=== PATIENT | male | born 1955 | race African-American/Black ===

== ENCOUNTER 2018-11-28 13:12 | Inpatient (IN) | payer OTHER ==
[2018-11-28 13:26] VITALS: BMI 23.7
--- NOTE | 2018-11-28 13:45 | PDOC ---
History of Present Illness - General Chief Complaint: Chest Pain Stated Complaint: CHEST PAIN Time Seen by Provider: 11/28/18 13:35 History Source: Patient - History of Present Illness Initial Comments: 11/28/18 13:45 The patient is a 62 year old male with a PMH of BPH, HTN and cocaine abuse who presents to the ED c/o acute onset of chest pain. Pain started 1-2 hours prior to presentation after he ate a sandwich while waiting to check into [facility] for detox . Pain is L sided, either "pressure" or "squeezing" non-radiating and intermittent without any identifying triggering or relieving factors. Denies palpitations, lightheadedness, shortness of breath, diaphoresis, nausea. Endorses 1 month h/o productive cough. States he smoked crack overnight and stopped around 9:30 a.m. this morning and his chest pain is similar to the chest pain he experienced after snorting cocaine last week. H/o negative stress testing 10+ years previous. Smokes 2ppd since age 26. NKDA Surgical: R inguinal hernia repair Social: daily cocaine, alcohol, cigarettes PMD: Dr. Chiqui Velazquez M.D. @ [facility]. As per EMR, patient has no prior evaluation our ED. Past History - Past Medical History Allergies/Adverse Reactions: Allergies Allergy/AdvReac Type Severity Reaction Status Date / Time No Known Allergies Allergy Verified 11/28/18 13:26 Home Medications: Ambulatory Orders Hydrochlorothiazide [Hctz -] 25 mg PO DAILY 11/28/18 Tamsulosin HCl [Flomax] 0.4 mg PO DAILY 11/28/18 COPD: No HTN: Yes - Suicide/Smoking/Psychosocial Hx Smoking History: Current every day smoker Number of Cigarettes Smoked Daily: 40 Information on smoking cessation initiated: Yes Drug/Substance Use Hx: Yes (COCAINE) Review of Systems - Review of Systems Constitutional: No: Chills, Fever HEENTM: No: Blurred Vision, Hearing Loss Respiratory: Yes: Productive cough. No: Hemoptysis Cardiac (ROS): Yes: Chest Pain. No: Lightheadedness, Palpitations, Syncope ABD/GI: No: Constipated, Diarrhea, Nausea, Vomiting *Physical Exam - Vital Signs Last Vital Signs Temp Pulse Resp BP Pulse Ox 98.2 F 71 20 154/96 96 11/28/18 13:24 11/28/18 13:24 11/28/18 13:24 11/28/18 13:24 11/28/18 13:24 - Physical Exam General Appearance: Yes: Nourished, Appropriately Dressed HEENT: positive: Normal Voice, Hearing Grossly Normal Neck: positive: Trachea midline, Supple Respiratory/Chest: positive: Lungs Clear, Normal Breath Sounds. negative: Crackles, Rales, Wheezing, Dullness Cardiovascular: positive: S1, S2. negative: Edema, JVD Vascular Pulses: Dorsalis-Pedis (R): 2+, Doralis-Pedis (L): 2+ Gastrointestinal/Abdominal: positive: Normal Bowel Sounds, Soft Extremity: positive: Normal Capillary Refill, Normal Inspection Integumentary: positive: Normal Color, Dry, Warm Neurologic: positive: Fully Oriented, Alert ED Treatment Course - LABORATORY CBC & Chemistry Diagram: 11/28/18 13:52 11/28/18 13:52 Medical Decision Making - Medical Decision Making 11/28/18 13:49 62 year old male with chest pain, recent cocaine use this a.m., non-cocaine toxic. VS unremarkable. Frontal diagnosis: r/o ACS, coronary vasospasm, NSTEMI , STEMI, arrhythmia, unstable angina, PE, dissection, PUD, esophageal spasm, GERD, gastritis, costochondritis, pneumonia, pleurisy, pericarditis/ myocarditis. dehydration, electrolyte/metabolic derangements. Will obtain Troponin x2, EKG, CXR, CBC/CMP. Reassess. 11/28/18 13:51 EKG non-ischemic as documented in EKG section of EMR 11/28/18 14:44 Troponin (-) x1 CBC unremarkable Heart Score 5 11/28/18 14:50 Patient reassessed @ bedside VSS At this time, patient requires serial troponins given RF of smoking, HTN w/ Heart Score 5. Counseled on plan of care, amenable to admission Hospitalist microblogged for admission 11/28/18 15:12 Case d/w Hospitalist [facility], will admit OBS tele for serial troponins, possible stress testing in a.m. Clinical Impression: r/o ACS *DC/Admit/Observation/Transfer Diagnosis at time of Disposition: Chest pain - Discharge Dispostion Condition at time of disposition: Fair Decision to Admit order: Yes - Referrals - Patient Instructions - Post Discharge Activity
[2018-11-28 13:58] LABS: BASO % 0.6 % (0-2.0); EOS % 0.3 % (0-4.5); HEMATOCRIT 44.1 % (35.4-49); HEMOGLOBIN 15.1 GM/dL (11.7-16.9); LYMPH % 19.3 % (8-40); MCH 33.2 pg (25.7-33.7); MCHC 34.4 g/dl (32.0-35.9); MEAN CELL VOLUME 96.7 fl (80-96); MEAN PLT VOLUME 9.7 fl (7.5-11.1); MONO % 6.4 % (3.8-10.2); NEUT % 73.4 % (42.8-82.8); PLATELET COUNT 203 K/MM3 (134-434); RBC 4.56 M/mm3 (4.00-5.60); WHITE BLOOD COUNT 11.1 K/mm3 (4.0-10.0)
--- NOTE | 2018-11-28 14:08 | PDOC ---
Attending Attestation - HPI HPI: 11/28/18 15:32 The patient is a 62-year-old male, with a past medical history of BPH, HTN, and cocaine abuse, who presents to the ED for evaluation of sudden onset of chest pain that began 1-2 hours prior to presentation. The pain began after the patient ate a sandwich. He describes the pain as pressure-like in character, nonpleuritic, intermittent, with no alleviating/ exacerbating factors. Denies shortness of breath, diaphoresis, nausea, vomiting, fevers, or chills. He also reports 1 month of productive cough and recent crack use overnight. <Mary James - Last Filed: 11/28/18 15:32> - Resident Resident Name: Shirley Villalobos - ED Attending Attestation I have performed the following: I have examined & evaluated the patient, The case was reviewed & discussed with the resident, I agree w/resident's findings & plan, Exceptions are as noted - Physicial Exam PE: 11/28/18 15:34 Patient is awake and alert, well-nourished, in no distress Normocephalic and atraumatic PERRLA, EOMI No JVD CTA RRR No lower extremity edema - Medical Decision Making 11/28/18 15:34 62-year-old male with history of BPH, hypertension, heavy cigarette smoke and cocaine use presents with intermittent chest discomfort related to cocaine use. In the ER, patient is noted to be mildly hypotensive with a heart rate of 81. EKG reveals no evidence of acute ischemia or dysrhythmia. There is no evidence of acute cocaine intoxication. Patient's CBC/CMP/cardiac enzymes within normal limit at this time. Patient's heart score is noted to be 5. This time, patient will be placed on telemetry for further cardiac evaluation. <Adolfo Colon - Last Filed: 11/28/18 15:35> Attestations - Attestations 11/28/18 15:32 Documentation prepared by Mary James, acting as medical records clerk for Adolfo Colon MD. <Mary James - Last Filed: 11/28/18 15:32>
[2018-11-28] MEDS ORDERED: NITROGLYCERIN 2% OINTMENT - 1GM PACKET TD ONE ×2 (14:11→14:23)
[2018-11-28] MEDS ORDERED: ASPIRIN 325 MG ENTERIC COATED TABLET (FP) PO ONE (14:12)
[2018-11-28] MEDS ORDERED: ASPIRIN 325 MG TABLET ONE (14:23)
[2018-11-28 14:27] LABS: ALBUMIN 3.7 g/dl (3.4-5.0); ALK PHOS 109 U/L (45-117); ANION GAP 5 MMOL/L (8-16); BILIRUBIN,TOTAL 0.5 mg/dL (0.2-1); BLOOD UREA NITROGEN 10 mg/dL (7-18); CALCIUM 8.9 mg/dL (8.5-10.1); CHLORIDE 107 mmol/L (98-107); CO2 26 mmol/L (21-32); CREATININE 0.8 mg/dL (0.55-1.3); GLUCOSE,RANDOM 77 mg/dL (74-106); N-TERMINAL BNP 82.9 pg/ml (5-125); POTASSIUM 3.9 mmol/L (3.5-5.1); SGOT/AST 18 U/L (15-37); SGPT/ALT 29 U/L (13-61); SODIUM 138 mmol/L (136-145); TOT PROT 7.1 g/dl (6.4-8.2)
--- NOTE | 2018-11-28 17:45 | HP ---
Admitting History and Physical - Admission Chief Complaint: left sided Chest Pain History of Present Illness: 62 year old M with h/o BPH, HTN, +PPD and ETOH and cocaine abuse presents to ED for evaluation of acute left sided chest pain. Mr. Guerra reports long standing cocaine use (since age 18) tobacco and ETOH use (since age 16). His use of all drugs have increased significantly over the last several months and he has noted that over the last three months he experiences left sided CP after his cocaine use. Patient did not seek medical attention for his chest pain since it resolved spontaneously and he did not have any associated symptoms. He endorses cardiac stress test in the which was negative. Today 11/28, Mr. Guerra checked himself into [facility] for drug rehab, but used cocaine and had a beer before presenting to facility. Upon arriving at the facility, he reports consuming a sandwich which precipitated an episode of left chest, described as chest tightness, PAS 6/10, no radiation and associated with mild SOB. He denies palpitations, dizziness, N/N/CASTRO or LOC. EMS was activated from [facility] and patient taken to [facility] for evaluation. Second complaint pt has long h/o tobacco dependence and has endorsed 2 weeks of night sweats, productive cough with thick white sputum, and 15-20lb weight loss over the last 6-8months. He reports +PPD, denies recent travel, no recent sick contact or incarcerations. In ED: Vitals: 154/96, HR 71, RR 20, T 98.2, O2 sat 96 trop x 1 negative EKG: NSR 75bpm. CXR: no acute findings Pt admitted for serial cardiac enzymes and AFB testing. Cards and ID consulted History Source: Patient Limitations to Obtaining History: No Limitations - Past Medical History Cardiovascular: Yes: HTN Renal/: Yes: BPH Additional Past Medical History: h/o +PPD - Past Surgical History Additional Past Surgical History: right thumb tendon repair Right inguinal hernia repair last c-scope 2017 s/p polypectomy - Smoking History Smoking history: Current every day smoker Have you smoked in the past 12 months: Yes Aproximately how many cigarettes per day: 40 (2PPD x 37yrs) - Alcohol/Substance Use Hx Alcohol Use: Yes (5-6 beers per day) History of Substance Use: reports: Cocaine (1.5grams per day (smoked and occassionally nasally)) - Social History Usual Living Arrangement: Yes: Alone (Lives in a rented room) ADL: Independent Occupation: unemployed History of Recent Travel: No Home Medications - Allergies Allergies/Adverse Reactions: Allergies Allergy/AdvReac Type Severity Reaction Status Date / Time No Known Allergies Allergy Verified 11/28/18 13:26 - Home Medications Home Medications: Ambulatory Orders Hydrochlorothiazide [Hctz -] 25 mg PO DAILY 11/28/18 Tamsulosin HCl [Flomax] 0.4 mg PO DAILY 11/28/18 Family Disease History - Family Disease History Family Disease History: Other: Father ( (30+) PNA), Mother ( (80 ) cerebral hemorrhage 2/2 fall, DMII) Other Family History: three brothers all healthy. Sister 27 opiate dependence. Sister alive (72) well. Sister alive (60) well Review of Systems - Review of Systems Constitutional: reports: Diaphoresis, Unintentional Wgt. Loss Eyes: reports: No Symptoms HENT: reports: No Symptoms Neck: reports: No Symptoms Cardiovascular: reports: Chest Pain, Shortness of Breath Respiratory: reports: Cough Gastrointestinal: reports: Diarrhea (last c-scope 2017 s/p polypectomy) Genitourinary: reports: No Symptoms Breasts: reports: No Symptoms Reported Musculoskeletal: reports: Muscle Pain (Left mid back) Integumentary: reports: No Symptoms Neurological: reports: No Symptoms Endocrine: reports: Unexplained Weight Loss Hematology/Lymphatic: reports: No Symptoms Psychiatric: reports: Depression Physical Examination Vital Signs: Vital Signs Temperature 98.2 F 11/28/18 13:24 Pulse Rate 78 11/28/18 14:52 Respiratory Rate 16 11/28/18 14:52 Blood Pressure 146/90 11/28/18 14:52 O2 Sat by Pulse Oximetry (%) 98 11/28/18 14:52 Constitutional: Yes: No Distress, Calm, Thin Eyes: Yes: Conjunctiva Clear, EOM Intact, PERRL HENT: Yes: Atraumatic, Normocephalic Neck: Yes: Supple, Trachea Midline Cardiovascular: Yes: Regular Rate and Rhythm Respiratory: Yes: Regular, CTA Bilaterally Gastrointestinal: Yes: Normal Bowel Sounds, Soft, Hyperactive Bowel Sounds ...Rectal Exam: Yes: Deferred Musculoskeletal: Yes: WNL Extremities: Yes: WNL Edema: No Peripheral Pulses WNL: Yes Peripheral Pulses: Left Radial: 2+, Right Radial: 2+ Integumentary: Yes: WNL Neurological: Yes: Alert, Oriented ...Motor Strength: WNL Psychiatric: Yes: Alert, Oriented Labs: CBC, BMP 11/28/18 13:52 11/28/18 13:52 Imaging - Results Chest X-ray: Pending (CXR 11/28/2018), Report Reviewed Problem List - Problems (1) Left-sided chest pain Assessment/Plan: serial cardiac enzymes if negative, will perform stress test in AM start ASA 81mg daily EKG daily admit to tele cards consult echo ordered Code(s): R07.9 - CHEST PAIN, UNSPECIFIED (2) Abnormal weight loss Assessment/Plan: TSH/TFTs, A1C sent Code(s): R63.4 - ABNORMAL WEIGHT LOSS (3) Productive cough Assessment/Plan: CT chest ordered due to h/o + PPD admit to negative pressure isolation room quantiferon ordered AFB x 3 ordered Code(s): R05 - COUGH (4) Tobacco dependence Assessment/Plan: start ni Code(s): F17.200 - NICOTINE DEPENDENCE, UNSPECIFIED, UNCOMPLICATED (5) HTN (hypertension) Assessment/Plan: HCTZ 25mg daily cardiac diet NPO for possible stress in AM Code(s): I10 - ESSENTIAL (PRIMARY) HYPERTENSION (6) BPH (benign prostatic hyperplasia) Assessment/Plan: flomax 0.4mg daily Code(s): N40.0 - BENIGN PROSTATIC HYPERPLASIA WITHOUT LOWER URINRY TRACT SYMP (7) Prophylactic measure Assessment/Plan: heparin SC BID OOB to chair Ambulate as tolerate Code(s): Z29.9 - ENCOUNTER FOR PROPHYLACTIC MEASURES, UNSPECIFIED Assessment/Plan DISPO: full code Visit type - Emergency Visit Emergency Visit: Yes ED Registration Date: 11/28/18 Care time: The patient presented to the Emergency Department on the above date and was hospitalized for further evaluation of their emergent condition. - New Patient This patient is new to me today: Yes Date on this admission: 11/28/18 - Critical Care Critical Care patient: No
[2018-11-28 21:18] LABS: INR 1.07 (0.83-1.09); PROTHROMBIN TIME (PATIENT) 12.6 SEC (9.7-13.0)
[2018-11-28 21:21] LABS: ACTIVATED PTT 37.9 SECONDS (25.2-36.5)
[2018-11-29 06:09] LABS: BASO % 0.6 % (0-2.0); EOS % 1.6 % (0-4.5); HEMATOCRIT 44.3 % (35.4-49); HEMOGLOBIN 15.1 GM/dL (11.7-16.9); LYMPH % 45.3 % (8-40); MCH 33.5 pg (25.7-33.7); MCHC 34.1 g/dl (32.0-35.9); MEAN CELL VOLUME 98.1 fl (80-96); MEAN PLT VOLUME 9.5 fl (7.5-11.1); MONO % 9.3 % (3.8-10.2); NEUT % 43.2 % (42.8-82.8); PLATELET COUNT 193 K/MM3 (134-434); RBC 4.52 M/mm3 (4.00-5.60); RDW 13.3 % (11.9-15.9)
[2018-11-29 06:43] LABS: ALBUMIN 3.2 g/dl (3.4-5.0); ALK PHOS 112 U/L (45-117); ANION GAP 7 MMOL/L (8-16); BILIRUBIN,TOTAL 0.5 mg/dL (0.2-1); BLOOD UREA NITROGEN 17 mg/dL (7-18); CALCIUM 8.6 mg/dL (8.5-10.1); CHLORIDE 110 mmol/L (98-107); CHOLESTEROL 142 mg/dL (50-200); CO2 27 mmol/L (21-32); GLUCOSE,RANDOM 91 mg/dL (74-106); HDL CHOLESTEROL 43 mg/dL (40-60); MAGNESIUM 2.3 mg/dL (1.8-2.4); PHOSPHOROUS 4.2 mg/dL (2.5-4.9); POTASSIUM 4.1 mmol/L (3.5-5.1); SGOT/AST 18 U/L (15-37); SGPT/ALT 25 U/L (13-61); SODIUM 144 mmol/L (136-145); TOT PROT 6.4 g/dl (6.4-8.2); TRIGLYCERIDES 130 mg/dL (0-150)
[2018-11-29] MEDS ORDERED: HYDROCHLOROTHIAZIDE 12.5 MG CAPSULE (FP) PO SCH (10:00)
[2018-11-29] MEDS ORDERED: ACETAMINOPHEN 325 MG TABLET (FP) ONE (10:34)
[2018-11-29] MEDS ORDERED: HYDROCHLOROTHIAZIDE 25 MG TABLET (FP) ONE (10:35)
[2018-11-29] MEDS ORDERED: ASPIRIN 81 MG CHEWABLE TABLETS ONE (10:35)
[2018-11-29] MEDS ORDERED: TAMSULOSIN HCL 0.4 MG CAP ONE (10:35)
[2018-11-29] MEDS: HYDROCHLOROTHIAZIDE 25 MG TABLET (FP) PO SCH (10:41)
[2018-11-29] MEDS: ASPIRIN 81 MG CHEWABLE TABLETS PO SCH (10:41)
[2018-11-29] MEDS: TAMSULOSIN HCL 0.4 MG CAP PO SCH (10:41)
[2018-11-29] MEDS: ACETAMINOPHEN 325 MG TABLET (FP) PO PRN (10:41)
[2018-11-29] MEDS: amLODIPine BESYLATE 5 MG TABLET (FP) PO SCH (14:45)
--- NOTE | 2018-11-29 15:24 | ECHO ---
Name: TORIBIO BOYLE Exam:Adult Echocardiogram Study Date: 11/29/2018 10:54 AM Age: 62 yrs Reason For Study: intermittent chest pain Height: 73 in Weight: 180 lb BSA: 2.1 m2 MMode/2D Measurements & Calculations IVSd: 1.1 cm Ao root diam: 2.9 cm LVIDd: 5.4 cm LA dimension: 4.4 cm LVIDs: 3.5 cm LVPWd: 0.81 cm EDV(Teich): 138.6 ml LVOT diam: 2.1 cm ESV(Teich): 51.1 ml Doppler Measurements & Calculations MV E max jake: 38.7 cm/sec Ao V2 max: 97.1 cm/sec MV A max jake: 49.0 cm/sec Ao max P.8 mmHg MV E/A: 0.79 Ao V2 mean: 70.7 cm/sec MV dec time: 0.47 sec Ao mean P.2 mmHg Ao V2 VTI: 21.7 cm KENISHA(I,D): 2.0 cm2 KENISHA(V,D): 2.4 cm2 LV V1 max P.8 mmHg MR max jake: 368.3 cm/sec LV V1 mean P.91 mmHg MR max P.9 mmHg LV V1 max: 67.2 cm/sec LV V1 mean: 44.3 cm/sec LV V1 VTI: 13.0 cm SV(LVOT): 44.1 ml TR max jake: 225.9 cm/sec TR max P.4 mmHg Med Peak E' Jake: 6.7 cm/sec Med E/e': 5.8 Lat Peak E' Jake: 10.0 cm/sec Lat E/e': 3.9 Procedure A complete two-dimensional transthoracic echocardiogram was performed (2D, M-mode, Doppler and color flow Doppler). Left Ventricle There is mild concentric left ventricular hypertrophy. The left ventricular ejection fraction is norm al. Ejection Fraction = 55-60%. The left ventricular wall motion is normal. Right Ventricle The right ventricle is normal in size and function. Atria The left atrium is moderately dilated. Right atrial size is normal. Mitral Valve There is mild mitral regurgitation. Tricuspid Valve There is mild tricuspid regurgitation. Right ventricular systolic pressure is normal. Aortic Valve No hemodynamically significant valvular aortic stenosis. No aortic regurgitation is present. Pulmonic Valve There is no pulmonic valvular regurgitation. Great Vessels The aortic root is normal size. Pericardium/Pleura There is no pericardial effusion. Interpretation Summary There is mild concentric left ventricular hypertrophy. The left ventricular ejection fraction is normal. The right ventricle is normal in size and function. The left atrium is moderately dilated. There is mild mitral regurgitation. There is mild tricuspid regurgitation. MD Sergio Buck 11/29/2018 03:24 PM
--- NOTE | 2018-11-29 15:41 | CON.CARD ---
Consult Consult Specialty:: Cardiology Referred by:: Medicine Reason for Consultation:: chest pain - History of Present Illness Chief Complaint: chest pain History of Present Illness: 62M h/o HTN, +PPD, EtOH, cocain abuse p/w L chest pain. Has used cocaine several years, increased use in the last few months and has L side chest pain after cocaine. No dyspnea, palps, dizziness, lightheadedness. Also has 2 weeks night sweats, productive cough, 15-20 lb weight loss. Checked into [facility] for drug rehab yesterday after using cocaine and drinking beer, complained of chest pain also at the time. currently no chest pain. - Past Medical History Cardio/Vascular: Yes: HTN Renal/: Yes: BPH - Alcohol/Substance Use Hx Alcohol Use: Yes (5-6 beers per day) History of Substance Use: reports: Cocaine (1.5grams per day (smoked and occassionally nasally)) - Smoking History Smoking history: Current every day smoker Have you smoked in the past 12 months: Yes Aproximately how many cigarettes per day: 40 - Social History ADL: Independent Occupation: unemployed History of Recent Travel: No Home Medications - Allergies Allergies/Adverse Reactions: Allergies Allergy/AdvReac Type Severity Reaction Status Date / Time No Known Allergies Allergy Verified 11/28/18 13:26 - Home Medications Home Medications: Ambulatory Orders Hydrochlorothiazide [Hctz -] 25 mg PO DAILY 11/28/18 Tamsulosin HCl [Flomax] 0.4 mg PO DAILY 11/28/18 Family Disease History - Family Disease History Family Disease History: Other: Father ( (30+) PNA), Mother ( (80 ) cerebral hemorrhage 2/2 fall, DMII) Other Family History: three brothers all healthy. Sister 27 opiate dependence. Sister alive (72) well. Sister alive (60) well Review of Systems - Review of Systems Constitutional: reports: No Symptoms Eyes: reports: No Symptoms HENT: reports: No Symptoms Neck: reports: No Symptoms Cardiovascular: reports: No Symptoms Respiratory: reports: No Symptoms Gastrointestinal: reports: No Symptoms Genitourinary: reports: No Symptoms Musculoskeletal: reports: No Symptoms Integumentary: reports: No Symptoms Neurological: reports: No Symptoms Endocrine: reports: No Symptoms Hematology/Lymphatic: reports: No Symptoms Psychiatric: reports: No Symptoms Vital Signs: Vital Signs Temperature 98.2 F 11/29/18 08:06 Pulse Rate 82 11/29/18 12:45 Respiratory Rate 15 11/29/18 12:45 Blood Pressure 164/104 H 11/29/18 12:45 O2 Sat by Pulse Oximetry (%) 98 11/29/18 12:45 Constitutional: Yes: Well Nourished, No Distress, Calm Eyes: Yes: Conjunctiva Clear, EOM Intact HENT: Yes: Atraumatic, Normocephalic Neck: Yes: Supple, Trachea Midline Respiratory: Yes: Regular, CTA Bilaterally Gastrointestinal: Yes: Normal Bowel Sounds, Soft Cardiovascular: Yes: Regular Rate and Rhythm JVD: No Carotid Bruit: No PMI: Non-Displaced Heart Sounds: Yes: S1, S2 Murmur: No: Systolic Murmur Musculoskeletal: No: Back Pain Extremities: No: Cold Edema: No Peripheral Pulses WNL: Yes Peripheral Pulses: 2+ Left Carotid, 2+ Right Carotid, 2+ Left Doralis Pedis, 2+ Right Dorsalis Pedis Integumentary: No: Jaundice Neurological: Yes: Alert, Oriented Psychiatric: No: Agitated - Other Data Labs, Other Data: CBC, BMP 11/29/18 05:30 11/29/18 05:30 INR, PTT INR 1.07 (0.83-1.09) 11/28/18 20:35 Troponin, BNP 11/28/18 11/28/18 11/29/18 20:35 20:35 05:30 Troponin I < 0.02 < 0.02 B-Natriuretic Peptide 73.6 Troponin, BNP 11/28/18 11/28/18 11/29/18 20:35 20:35 05:30 Troponin I < 0.02 < 0.02 B-Natriuretic Peptide 73.6 Assessment/Plan EKG: sinus, nl intervals, no ischemic changes echo: mild conc LVH, nl LV function, mod dilated LA, mild MR, mild TR tele: sinus chest pain - trop neg x 3, EKG no ischemic changes - echo nl EF, mild LVH - monitoring on tele - likely in setting of cocaine use, wants to quit - stress test when TB rule out completed weight loss, cough - ID consulted, hx +ppd - on isolation cocaine abuse - encouraged cessation tobacco use - encouraged cessation HTN - elevated - now on home meds HCTZ, amlodipine
--- NOTE | 2018-11-29 16:37 | EKG ---
Test Reason : Blood Pressure : / mmHG Vent. Rate : 075 BPM Atrial Rate : 075 BPM P-R Int : 136 ms QRS Dur : 098 ms QT Int : 380 ms P-R-T Axes : 077 -02 002 degrees QTc Int : 424 ms NORMAL SINUS RHYTHM NORMAL ECG WHEN COMPARED WITH ECG OF 28-NOV-2018 11:25, NO SIGNIFICANT CHANGE WAS FOUND Confirmed by KUMAR CROW MD ([id number]) on 11/29/2018 4:37:42 PM Referred By: Confirmed By:KUMAR CROW MD
--- NOTE | 2018-11-29 17:55 | PN ---
Physical Exam: SUBJECTIVE: Patient seen and examined 24HR EVENTS: -pt remains isolated in ED -BP uncontrolled on HCTZ OBJECTIVE: Vital Signs Period Temp Pulse Resp BP Sys/Wu Pulse Ox Last 24 Hr 97.8 F-98.2 F 68-82 15-22 145-164/95-104 95-99 GENERAL: The patient is awake, alert, and fully oriented, in no acute distress. HEAD: Normal with no signs of trauma. EYES: PERRL, extraocular movements intact, sclera anicteric, conjunctiva clear. No ptosis. ENT: nares patent, oropharynx clear without exudates, moist mucous membranes. NECK: Trachea midline, full range of motion, supple. LUNGS: Breath sounds equal, clear to auscultation bilaterally, no wheezes, no crackles, no accessory muscle use. HEART: Regular rate and rhythm, S1, S2 without murmur, rub or gallop. ABDOMEN: Soft, nontender, nondistended, normoactive bowel sounds, no guarding, no rebound, EXTREMITIES: 2+ pulses, warm, well-perfused, no edema. NEUROLOGICAL: Cranial nerves II through XII grossly intact. Normal speech, gait normal. PSYCH: Normal mood, normal affect. SKIN: Warm, dry, normal turgor, no rashes or lesions noted Laboratory Results - last 24 hr 11/28/18 11/28/18 11/28/18 20:35 20:35 20:35 WBC RBC Hgb Hct MCV MCH MCHC RDW Plt Count MPV Absolute Neuts (auto) Neutrophils % Lymphocytes % Monocytes % Eosinophils % Basophils % Nucleated RBC % PT with INR 12.60 INR 1.07 PTT (Actin FS) 37.9 H Sodium Potassium Chloride Carbon Dioxide Anion Gap BUN Creatinine Creat Clearance w eGFR Random Glucose Hemoglobin A1c % Calcium Phosphorus Magnesium Total Bilirubin AST ALT Alkaline Phosphatase Creatine Kinase 225 Creatine Kinase Index 0.8 CK-MB (CK-2) 1.8 Troponin I < 0.02 B-Natriuretic Peptide 73.6 Total Protein Albumin Triglycerides Cholesterol Total LDL Cholesterol HDL Cholesterol TSH 11/29/18 11/29/18 11/29/18 05:30 05:30 05:30 WBC 5.0 RBC 4.52 Hgb 15.1 Hct 44.3 MCV 98.1 H MCH 33.5 MCHC 34.1 RDW 13.3 Plt Count 193 MPV 9.5 Absolute Neuts (auto) 2.1 Neutrophils % 43.2 D Lymphocytes % 45.3 H D Monocytes % 9.3 Eosinophils % 1.6 D Basophils % 0.6 Nucleated RBC % 0 PT with INR INR PTT (Actin FS) Sodium 144 Potassium 4.1 Chloride 110 H Carbon Dioxide 27 Anion Gap 7 L BUN 17 Creatinine 1.0 Creat Clearance w eGFR 75.97 Random Glucose 91 Hemoglobin A1c % 4.9 Calcium 8.6 Phosphorus 4.2 Magnesium 2.3 Total Bilirubin 0.5 AST 18 ALT 25 Alkaline Phosphatase 112 Creatine Kinase Creatine Kinase Index CK-MB (CK-2) 1.4 Troponin I < 0.02 B-Natriuretic Peptide Total Protein 6.4 Albumin 3.2 L Triglycerides 130 Cholesterol 142 Total LDL Cholesterol 80 HDL Cholesterol 43 TSH 0.52 Active Medications Generic Name Dose Route Start Last Admin Trade Name Freq PRN Reason Stop Dose Admin Acetaminophen 650 mg 11/28/18 17:23 11/29/18 10:41 Tylenol - PO 650 mg Q6H PRN Administration FEVER Amlodipine Besylate 5 mg 11/29/18 13:15 11/29/18 14:45 Norvasc - PO 5 mg DAILY RUBI Administration Aspirin 81 mg 11/29/18 10:00 11/29/18 10:41 Asa - PO 81 mg DAILY RUBI Administration Hydrochlorothiazide 25 mg 11/29/18 10:00 11/29/18 10:41 Hctz - PO 25 mg DAILY RUBI Administration Tamsulosin HCl 0.4 mg 11/29/18 08:30 11/29/18 10:41 Flomax - PO 0.4 mg DAILY@0830 RUBI Administration DIAGNOSTIC STUDIES: CXR 11/28/2018 IMPRESSION: No acute chest pathology CT chest 11/28/2018 Impression: [id number]-[id number] centrilobular emphysema mainly involving the upper lobes. Tiny pleural-based nodule in the right upper lobe, laterally measuring 3 mm which is nonspecific Note is made of a tiny gallstone on axial image 121 Reported By: So Rueda MD 11/28/182041 Echo 11/29/2018 Impression: Mild concentric LVH. normal EF. RV normal size and function. LA is moderately dilated. mild mitral regurg and mild tricuspid regurg ASSESSMENT/PLAN: 62 year old M with h/o BPH, HTN, +PPD and ETOH and cocaine abuse presents to ED for evaluation of acute left sided chest pain. Serial enzymes negative, pt will undergo stress testing once he is ruled negative for TB. 1. Chest Pain -ASA 81mg -tele isolation bed -stress test once AFB x 3 negative 2. HTN -continue HCTZ -start norvasc 5mg and titrate up to 10mg id BP not well controlled -cardiac diet 3. Tobacco dep, Chest CT changes consistent with emphysema -counselled on smoking cessation -nicoderm gum 4. night sweats and RUL small pleural based nodule -f/u AFB and quantiferon results -negative pressure isolation room 5.BPH flomax 0.4mg daily 6. PPX -heparin SC BID -OOB to chair -Ambulate as tolerated 7.DISPO -full code Problem List - Problems (1) Left-sided chest pain Code(s): R07.9 - CHEST PAIN, UNSPECIFIED (2) Abnormal weight loss Code(s): R63.4 - ABNORMAL WEIGHT LOSS (3) Productive cough Code(s): R05 - COUGH (4) Tobacco dependence Code(s): F17.200 - NICOTINE DEPENDENCE, UNSPECIFIED, UNCOMPLICATED (5) HTN (hypertension) Code(s): I10 - ESSENTIAL (PRIMARY) HYPERTENSION (6) BPH (benign prostatic hyperplasia) Code(s): N40.0 - BENIGN PROSTATIC HYPERPLASIA WITHOUT LOWER URINRY TRACT SYMP (7) Prophylactic measure Code(s): Z29.9 - ENCOUNTER FOR PROPHYLACTIC MEASURES, UNSPECIFIED Visit type - Emergency Visit Emergency Visit: Yes ED Registration Date: 11/28/18 Care time: The patient presented to the Emergency Department on the above date and was hospitalized for further evaluation of their emergent condition. - New Patient This patient is new to me today: No - Critical Care Critical Care patient: No - Discharge Referral Referred to [facility] Med P.C.: No
--- NOTE | 2018-11-30 08:21 | PN ---
Progress Note (short form) - Note Progress Note: asymptomatic. does have chest discomfort that intermittent and not related to movement. states pain was more severe on arrival. states he has similar chest pain when he uses cocaine. states he had 1 episodes of hemoptysis 3 weeks ago that was very little and had no repeat episodes. admits to intermittent chills for several weeks. also significant weight loss but states he has been on a "drug binge" so he has not eaten much over the past few months. Has +PPD in the late s after entering a drug rehab program and was treated with INH and B6 for 6 months and has had routine surveillance with CXR since then. also had an exercise stress test around that time and reports it as negative. and no cardiac testing since that time. Does have PMD who he sees regularly. Current Medications Generic Name Dose Route Start Last Admin Trade Name Freq PRN Reason Stop Dose Admin Acetaminophen 650 mg 11/28/18 17:23 11/29/18 10:41 Tylenol - PO 650 mg Q6H PRN Administration FEVER Amlodipine Besylate 5 mg 11/29/18 13:15 11/29/18 14:45 Norvasc - PO 5 mg DAILY RUBI Administration Aspirin 81 mg 11/29/18 10:00 11/29/18 10:41 Asa - PO 81 mg DAILY RUBI Administration Hydrochlorothiazide 25 mg 11/29/18 10:00 11/29/18 10:41 Hctz - PO 25 mg DAILY RUBI Administration Influenza Virus Vaccine Quadrival 60 mcg 11/30/18 08:00 Flulaval Quad [id number] IM 11/30/18 08:01 .ONCE ONE Pneumococcal 13-Valent Conj Vacc 0.5 ml 11/30/18 08:00 Prevnar 13 Syringe - IM 11/30/18 08:01 .ONCE ONE Tamsulosin HCl 0.4 mg 11/29/18 08:30 11/29/18 10:41 Flomax - PO 0.4 mg DAILY@0830 RUBI Administration Last Vital Signs Temp Pulse Resp BP Pulse Ox 97.8 F 68 18 126/58 L 98 11/30/18 01:00 11/30/18 05:00 11/30/18 05:00 11/30/18 05:00 11/29/18 20:03 General NAD, thin appearing male CV S1 S2 RRR no murmur/rub/gallop + chest wall tenderness Lungs CTA B/L no wheezing/rales/rhonchi Abdomen soft NT/ND Extremities no edema, no tremors CBCD WBC 5.0 K/mm3 (4.0-10.0) 11/29/18 05:30 RBC 4.52 M/mm3 (4.00-5.60) 11/29/18 05:30 Hgb 15.1 GM/dL (11.7-16.9) 11/29/18 05:30 Hct 44.3 % (35.4-49) 11/29/18 05:30 MCV 98.1 fl (80-96) H 11/29/18 05:30 MCHC 34.1 g/dl (32.0-35.9) 11/29/18 05:30 RDW 13.3 % (11.9-15.9) 11/29/18 05:30 Plt Count 193 K/MM3 (134-434) 11/29/18 05:30 MPV 9.5 fl (7.5-11.1) 11/29/18 05:30 CMP Sodium 144 mmol/L (136-145) 11/29/18 05:30 Potassium 4.1 mmol/L (3.5-5.1) 11/29/18 05:30 Chloride 110 mmol/L (98-107) H 11/29/18 05:30 Carbon Dioxide 27 mmol/L (21-32) 11/29/18 05:30 Anion Gap 7 MMOL/L (8-16) L 11/29/18 05:30 BUN 17 mg/dL (7-18) 11/29/18 05:30 Creatinine 1.0 mg/dL (0.55-1.3) 11/29/18 05:30 Creat Clearance w eGFR 75.97 (>60) 11/29/18 05:30 Random Glucose 91 mg/dL (74-106) 11/29/18 05:30 Calcium 8.6 mg/dL (8.5-10.1) 11/29/18 05:30 Total Bilirubin 0.5 mg/dL (0.2-1) 11/29/18 05:30 AST 18 U/L (15-37) 11/29/18 05:30 ALT 25 U/L (13-61) 11/29/18 05:30 Alkaline Phosphatase 112 U/L (45-117) 11/29/18 05:30 Total Protein 6.4 g/dl (6.4-8.2) 11/29/18 05:30 Albumin 3.2 g/dl (3.4-5.0) L 11/29/18 05:30 CARDIAC ENZYMES Creatine Kinase 225 U/L (26-308) 11/28/18 20:35 Troponin I < 0.02 ng/ml (0.00-0.05) 11/29/18 05:30 Microbiology 11/29/18 20:05 Sputum - Expectorated AFB Smear Concentration - Preliminary 11/29/18 20:05 Sputum - Expectorated Mycobacterial Culture - Preliminary 11/29/18 14:32 Sputum - Expectorated AFB Smear Concentration - Preliminary 11/29/18 14:32 Sputum - Expectorated Mycobacterial Culture - Preliminary 11/29/18 12:05 Sputum - Expectorated AFB Smear Concentration - Preliminary 11/29/18 12:05 Sputum - Expectorated Mycobacterial Culture - Preliminary 11/28/18 21:34 Urine - Urine Clean Catch Mycobacterial Culture - Preliminary Assessment and PLan 62 year old M with h/o BPH, HTN, +PPD and ETOH and cocaine abuse presents to ED for evaluation of acute left sided chest pain. Serial enzymes negative, pt will undergo stress testing once he is ruled negative for TB. 1. R/O TB- no hemoptysis at this time. QFT pending. AFB#1 sent yesterday. will get another test today. ID consulted. Airborne isolation 2. CP- possible vasovaspasm from Cocaine use. CE neg x3. Echo with no WMA. would benefit from stress test possible inpatient vs outpatient. pt will need to demonstrate drug abstinence and compliance. asa 3. RUL nodule- 3mm will need repeat CT in 3 months 4. Continuous polysubstance abuse- CIWA 0. no signs of withdrawal. denies IVDA. desires to remain clean. blames social stressors for his recent use however desires to abstain. not interested in inpatient rehab. is aware of outpatient center in the [place] that he is interested in attending on his release. (has job starting next week) 5. HTN- controlled. avoid betablockers 6. BPH- flomax 7. DVT ppx- will start lovenox as no contraindication to chemical prophylaxis Visit type - Emergency Visit Emergency Visit: Yes ED Registration Date: 11/28/18 Care time: The patient presented to the Emergency Department on the above date and was hospitalized for further evaluation of their emergent condition. - New Patient This patient is new to me today: Yes Date on this admission: 11/30/18 - Critical Care Critical Care patient: No - Discharge Referral Referred to [facility] Med P.C.: No
[2018-11-30] MEDS: HYDROCHLOROTHIAZIDE 25 MG TABLET (FP) PO SCH (09:51)
[2018-11-30] MEDS: TAMSULOSIN HCL 0.4 MG CAP PO SCH (09:51)
[2018-11-30] MEDS: amLODIPine BESYLATE 5 MG TABLET (FP) PO SCH (09:51)
[2018-11-30] MEDS: ASPIRIN 81 MG CHEWABLE TABLETS PO SCH (09:52)
[2018-11-30] MEDS ORDERED: FLU VACCINE QUAD 60 MCG/0.5 ML (MDV 18-19) IM ONE (10:00)
[2018-11-30] MEDS ORDERED: PNEUMOC 13-VAL CONJ-DIP CRM/PF 0.5 ML DISP.SYRIN IM ONE (10:00)
[2018-11-30] MEDS: ENOXAPARIN NA (PORCINE) 40 MG/0.4 ML DISP.SYRIN SQ SCH (11:38)
--- NOTE | 2018-11-30 12:23 | PN ---
Progress Note (short form) - Note Progress Note: s: no cp sob palps dizzy o: Vital Signs Period Temp Pulse Resp BP Sys/Wu Pulse Ox Last 24 Hr 97.8 F-98.4 F 64-82 15-20 118-164/58-110 97-98 Constitutional: Yes: Well Nourished, No Distress, Calm Eyes: Yes: Conjunctiva Clear Neck: Yes: Supple, Trachea Midline Respiratory: Yes: Regular, CTA Bilaterally Gastrointestinal: Yes: Normal Bowel Sounds, Soft Cardiovascular: Yes: Regular Rate and Rhythm JVD: No Heart Sounds: Yes: S1, S2 Murmur: No: Systolic Murmur Extremities: No: Cold Edema: No Integumentary: No: Jaundice Neurological: Yes: Alert, Oriented Psychiatric: No: Agitated Current Medications Generic Name Dose Route Start Last Admin Trade Name Freq PRN Reason Stop Dose Admin Acetaminophen 650 mg 11/28/18 17:23 11/29/18 10:41 Tylenol - PO 650 mg Q6H PRN Administration FEVER Amlodipine Besylate 5 mg 11/29/18 13:15 11/30/18 09:51 Norvasc - PO 5 mg DAILY RUBI Administration Aspirin 81 mg 11/29/18 10:00 11/30/18 09:52 Asa - PO 81 mg DAILY RUBI Administration Enoxaparin Sodium 40 mg 11/30/18 10:00 11/30/18 11:38 Lovenox - SQ 40 mg DAILY RUBI Administration Hydrochlorothiazide 25 mg 11/29/18 10:00 11/30/18 09:51 Hctz - PO 25 mg DAILY RUBI Administration Tamsulosin HCl 0.4 mg 11/29/18 08:30 11/30/18 09:51 Flomax - PO 0.4 mg DAILY@0830 RUBI Administration CBC, BMP 11/29/18 05:30 11/29/18 05:30 Assessment/Plan EKG: sinus, nl intervals, no ischemic changes echo: mild conc LVH, nl LV function, mod dilated LA, mild MR, mild TR tele: sinus chest pain - trop neg x 3, EKG no ischemic changes - echo nl EF, mild LVH - tele benign - likely in setting of cocaine use, wants to quit - stress test when TB rule out completed weight loss, cough - ID consulted, hx +ppd - on isolation cocaine abuse - encouraged cessation tobacco use - encouraged cessation HTN - cont current meds
--- NOTE | 2018-11-30 16:11 | PN ---
Progress Note (short form) - Note Progress Note: ID CONSULT DICTATED + SPUTUM AFB MTB V. JETHRO WASTING SYNDROME ? DRUG USE ?TB ?HIV AWAIT SPUTUM AFB OBTAIN TB PCR AFB ISOLATION OBSERVE OFF ANTIBIOTICS HIV TEST (PT CONSENTS)
--- NOTE | 2018-11-30 17:38 | CONS ---
DATE OF CONSULTATION: DATE OF DICTATION: 11/30/2018 INFECTIOUS DISEASE CONSULTATION Patient is a 62-year-old male with a history of polysubstance abuse evaluated for possible tuberculosis. Patient has a history of tobacco, cocaine, and alcohol abuse. He was admitted to the hospital on November 28, 2018, after developing a chest pain. Patient had been using cocaine and developed abrupt onset of chest pain syndrome after eating a sandwich. He had reported a significant weight loss, chronic cough at one point productive of blood streaked sputum and night sweats. He has a history of positive PPD treated in the with INH. The patient was placed on respiratory isolation. A CAT scan of the chest was performed that showed changes consistent with COPD as well as a right upper lobe nodule. Two sputum specimens were positive for rare AFB. The patient attributes his weight loss to anorexia from active drug use. He does, however, report a cough for the past 1 month and night sweats. He has a history of positive PPD and received 6 months of INH and B6 prophylaxis in the . He states tested HIV in the past; however, has not been recently tested. He denies a history of injection drug use. He is sexually active, uses condoms. Denies blood transfusions. PAST MEDICAL HISTORY: Positive for BPH and hypertension. PAST SURGICAL HISTORY: Status post right inguinal hernia repair. ALLERGIES: No known allergies. MEDICATIONS: Hydrochlorothiazide, Flomax. SOCIAL HISTORY: As per HPI. LABORATORY DATA: White count 11 on admission, presently 5.0, hematocrit 44.3, platelet count 193. BUN 17, creatinine 1.0. Liver enzymes normal. Sputum AFB positive for rare AFB x2. PHYSICAL EXAMINATION: General: He is awake and alert. He is not acutely toxic appearing. Not chronically ill appearing. Vital Signs: Temperature 98.4, blood pressure 151/98, pulse 68 regular, respirations 18 per minute. HEENT: Sclerae anicteric. Oropharynx negative for thrush. Neck: Supple. No palpable nodes. Heart: Sounds S1, S2. No murmur. Lungs: Clear. Diminished breath sounds bilaterally. No rhonchi, rales, or wheezing. Abdomen: Soft. No tenderness. Extremities: Negative for edema. IMPRESSION: 1. Positive sputum acid-fast bacilli, rule out Mycobacterium tuberculosis versus atypical mycobacteria. 2. Wasting syndrome possibly secondary to drug use, rule out tuberculosis, rule out human immunodeficiency virus disease. 3. Polysubstance abuse. RECOMMENDATION: Await sputum AFB. Obtain TB PCR and HIV test (patient gives consent). AFB isolation. Observe off antibiotic therapy. Thank you for the kind referral. ANDRA ROMANO M.D. MARIVEL/[id number]
[2018-12-01] MEDS: ACETAMINOPHEN 325 MG TABLET (FP) PO PRN (01:41)
--- NOTE | 2018-12-01 09:14 | PN ---
Progress Note, Physician Chief Complaint: cp History of Present Illness: no more CP no sob + cough no palpit - Current Medication List Current Medications: Active Medications Acetaminophen (Tylenol -) 650 mg PO Q6H PRN PRN Reason: FEVER Last Admin: 12/01/18 01:41 Dose: 650 mg Amlodipine Besylate (Norvasc -) 5 mg PO DAILY [facility] Last Admin: 11/30/18 09:51 Dose: 5 mg Aspirin (Asa -) 81 mg PO DAILY [facility] Last Admin: 11/30/18 09:52 Dose: 81 mg Enoxaparin Sodium (Lovenox -) 40 mg SQ DAILY [facility] Last Admin: 11/30/18 11:38 Dose: 40 mg Hydrochlorothiazide (Hctz -) 25 mg PO DAILY [facility] Last Admin: 11/30/18 09:51 Dose: 25 mg Tamsulosin HCl (Flomax -) 0.4 mg PO DAILY@0830 [facility] Last Admin: 11/30/18 09:51 Dose: 0.4 mg - Objective Vital Signs: Vital Signs Temperature 98.4 F 12/01/18 02:00 Pulse Rate 87 12/01/18 06:00 Respiratory Rate 20 12/01/18 06:00 Blood Pressure 133/93 12/01/18 06:00 O2 Sat by Pulse Oximetry (%) 98 11/30/18 21:00 Constitutional: Yes: Well Nourished, No Distress, Calm Cardiovascular: Yes: Regular Rate and Rhythm, S1, S2. No: Gallop, Murmur, Rub Respiratory: Yes: Regular, CTA Bilaterally. No: Accessory Muscle Use, Rales, Wheezes Extremities: No: Cold Edema: No Neurological: Yes: Alert, Oriented Psychiatric: No: Agitated Labs: CBC, BMP 11/29/18 05:30 11/29/18 05:30 INR, PTT INR 1.07 (0.83-1.09) 11/28/18 20:35 Assessment/Plan EKG: sinus, nl intervals, no ischemic changes echo: mild conc LVH, nl LV function, mod dilated LA, mild MR, mild TR CT chest: mild-mod copd changes, tiny nodule tele: NSR chest pain - trop neg x 3, EKG no ischemic changes - CT chest images reviewed, no coronary calcifications present - echo nl EF, mild LVH - likely in setting of cocaine use - stress test when TB rule out completed weight loss, cough - hx +ppd, +AFB sputum - on isolation, for sputum cultures, TB PCR analysis--per ID cocaine abuse - encouraged cessation tobacco use - encouraged cessation HTN - bp controlled - cont current meds
[2018-12-01] MEDS: ENOXAPARIN NA (PORCINE) 40 MG/0.4 ML DISP.SYRIN SQ SCH (09:48)
[2018-12-01] MEDS: TAMSULOSIN HCL 0.4 MG CAP PO SCH (09:48)
[2018-12-01] MEDS: HYDROCHLOROTHIAZIDE 25 MG TABLET (FP) PO SCH (09:48)
[2018-12-01] MEDS: ASPIRIN 81 MG CHEWABLE TABLETS PO SCH (09:48)
[2018-12-01] MEDS: amLODIPine BESYLATE 5 MG TABLET (FP) PO SCH (09:48)
--- NOTE | 2018-12-01 19:20 | PN ---
Progress Note (short form) - Note Progress Note: Paged for Pt. having diarrhea x 3 today and Pt. requesting imodium. Unclear why Pt. is having diarrhea, Legionella, CDiff Ag sent and Ova and Parasites sent. Pt. started on NS @ 42ml/hr as there is concern for volum overload in the setting of ACS.
[2018-12-01] MEDS ORDERED: SODIUM CHLORIDE 1,000 ML IV SCH (19:30)
[2018-12-02] MEDS ORDERED: PT OWN MED DRAWER 7, Y5N ONE ×2 (08:46→18:40)
[2018-12-02] MEDS: ENOXAPARIN NA (PORCINE) 40 MG/0.4 ML DISP.SYRIN SQ SCH (09:58)
[2018-12-02] MEDS: ASPIRIN 81 MG CHEWABLE TABLETS PO SCH (09:58)
[2018-12-02] MEDS: HYDROCHLOROTHIAZIDE 25 MG TABLET (FP) PO SCH (09:58)
[2018-12-02] MEDS: amLODIPine BESYLATE 5 MG TABLET (FP) PO SCH (09:59)
[2018-12-02] MEDS: TAMSULOSIN HCL 0.4 MG CAP PO SCH (09:59)
--- NOTE | 2018-12-02 10:16 | PN ---
Physical Exam: SUBJECTIVE: Patient seen and examined note is for 12/01/2018 visit OBJECTIVE: Vital Signs Period Temp Pulse Resp BP Sys/Wu Pulse Ox Last 24 Hr 97.7 F-98.2 F 65-94 18-20 106-129/57-90 96-96 UBJECTIVE: Patient seen and examined, No overnight events OBJECTIVE: Vital Signs Period Temp Pulse Resp BP Sys/Wu Pulse Ox Last 24 Hr 97.7 F-98.2 F 65-95 18-20 106-129/57-90 96-96 GENERAL: The patient is awake, alert, and fully oriented, in no acute distress. HEAD: Normal with no signs of trauma. LUNGS: Breath sounds equal, clear to auscultation bilaterally, no wheezes, no crackles, no accessory muscle use. HEART: Regular rate and rhythm, S1, S2 Laboratory Results - last 24 hr 12/01/18 07:20 HIV 1&2 Antibody Screen Negative HIV P24 Antigen Negative Active Medications Generic Name Dose Route Start Last Admin Trade Name Freq PRN Reason Stop Dose Admin Acetaminophen 650 mg 11/28/18 17:23 12/01/18 01:41 Tylenol - PO 650 mg Q6H PRN Administration FEVER Amlodipine Besylate 5 mg 11/29/18 13:15 12/01/18 09:48 Norvasc - PO 5 mg DAILY RUBI Administration Aspirin 81 mg 11/29/18 10:00 12/01/18 09:48 Asa - PO 81 mg DAILY RUBI Administration Enoxaparin Sodium 40 mg 11/30/18 10:00 12/01/18 09:48 Lovenox - SQ 40 mg DAILY RUBI Administration Hydrochlorothiazide 25 mg 11/29/18 10:00 12/01/18 09:48 Hctz - PO 25 mg DAILY RUBI Administration Sodium Chloride 1,000 mls @ 42 mls/hr 12/01/18 19:30 Normal Saline - IV ASDIR RUBI Tamsulosin HCl 0.4 mg 11/29/18 08:30 12/01/18 09:48 Flomax - PO 0.4 mg DAILY@0830 RUBI Administration ASSESSMENT/PLAN: 62 Y/O M HTN, +PPD and ETOH and cocaine abuse presents to ED for evaluation of acute left sided chest pain. ACS was R/O and was found to have abnormal CXR and + Quantiferon and been evaluated for possible TB. Chest pain: in a patient with HTN, smoker, cocaine abuser: ACS R/O , is qualified to get stress test, cardio following up. on ASA, anti HTN meds, will start on statin unclear what is the need for waiting till the TB is R/O. No need for further tele monitoring at this time , will down grade to regular medicine floor. He was informed that anytime he uses cocaine he may have cardiovascular events at that time. HTN: well controlled at this time.C/W amlodipine, HCTZ at this time, Diarrhea: he has goot intake no need for IV fluids, no need for W/U at this time as it is acute at this time. Emphysema on the imaging and lung nodule: will ask for pulm eval , for need for further evaluation and management of emphysema. Lung nodule: + quantiferon: will follow with ID for recs. he has no pulmonary symptoms at this time. BPH:Will C/W tamsulosin DVT ppx: WILL C/W lovenox Drug and Etoh abuse: SW consult to provide info about rehabs Dispo: home after further evaluation Visit type - Emergency Visit Emergency Visit: Yes ED Registration Date: 11/28/18 Care time: The patient presented to the Emergency Department on the above date and was hospitalized for further evaluation of their emergent condition. - New Patient This patient is new to me today: No - Critical Care Critical Care patient: No - Discharge Referral Referred to [facility] Med P.C.: No
[2018-12-02] MEDS ORDERED: FLU VACCINE QUAD 60 MCG/0.5 ML (MDV 18-19) IM ONE (10:38)
[2018-12-02] MEDS ORDERED: PNEUMOC 13-VAL CONJ-DIP CRM/PF 0.5 ML DISP.SYRIN IM ONE (10:38)
--- NOTE | 2018-12-02 10:52 | PN ---
Progress Note, Physician History of Present Illness: No complaints Chest pain improving Tele: NSR and ST to 120s - Current Medication List Current Medications: Active Medications Acetaminophen (Tylenol -) 650 mg PO Q6H PRN PRN Reason: FEVER Last Admin: 12/01/18 01:41 Dose: 650 mg Amlodipine Besylate (Norvasc -) 5 mg PO DAILY [facility] Last Admin: 12/02/18 09:59 Dose: 5 mg Aspirin (Asa -) 81 mg PO DAILY [facility] Last Admin: 12/02/18 09:58 Dose: 81 mg Atorvastatin Calcium (Lipitor -) 20 mg PO [facility] Enoxaparin Sodium (Lovenox -) 40 mg SQ DAILY [facility] Last Admin: 12/02/18 09:58 Dose: 40 mg Hydrochlorothiazide (Hctz -) 25 mg PO DAILY [facility] Last Admin: 12/02/18 09:58 Dose: 25 mg Influenza Virus Vaccine Quadrival (Flulaval Quad [id number]) 60 mcg IM .ONCE ONE Stop: 12/02/18 10:39 Pneumococcal 13-Valent Conj Vacc (Prevnar 13 Syringe -) 0.5 ml IM .ONCE ONE Stop: 12/02/18 10:39 Tamsulosin HCl (Flomax -) 0.4 mg PO DAILY@0830 [facility] Last Admin: 12/02/18 09:59 Dose: 0.4 mg - Objective Vital Signs: Vital Signs Temperature 97.7 F 12/02/18 09:30 Pulse Rate 75 12/02/18 09:30 Respiratory Rate 18 12/02/18 09:30 Blood Pressure 106/77 12/02/18 09:30 O2 Sat by Pulse Oximetry (%) 96 12/02/18 09:00 Constitutional: Yes: No Distress Eyes: Yes: WNL HENT: Yes: WNL Neck: Yes: WNL Cardiovascular: Yes: Regular Rate and Rhythm (Crackles in right base) Respiratory: Yes: Rhonchi (Crackles in left base) Gastrointestinal: Yes: Normal Bowel Sounds Musculoskeletal: Yes: WNL Extremities: Yes: WNL Edema: No Labs: CBC, BMP 11/29/18 05:30 11/29/18 05:30 INR, PTT INR 1.07 (0.83-1.09) 11/28/18 20:35 Assessment/Plan chest pain - trop neg x 3, EKG no ischemic changes - CT chest images reviewed, no coronary calcifications present - echo nl EF, mild LVH - likely in setting of cocaine use - 12/02: agree stress test when TB rule out completed weight loss, cough - hx +ppd, +AFB sputum - on isolation, for sputum cultures, TB PCR analysis--per ID HTN - bp controlled - cont current meds
[2018-12-02] MEDS: ATORVASTATIN CA 20 MG TABLET (FP) PO SCH (21:09)
--- NOTE | 2018-12-03 08:52 | PN ---
Progress Note, Physician Chief Complaint: No new complaints remained afebrile - Current Medication List Current Medications: Active Medications Acetaminophen (Tylenol -) 650 mg PO Q6H PRN PRN Reason: FEVER Last Admin: 12/01/18 01:41 Dose: 650 mg Amlodipine Besylate (Norvasc -) 5 mg PO DAILY [facility] Last Admin: 12/02/18 09:59 Dose: 5 mg Aspirin (Asa -) 81 mg PO DAILY [facility] Last Admin: 12/02/18 09:58 Dose: 81 mg Atorvastatin Calcium (Lipitor -) 20 mg PO HS [facility] Last Admin: 12/02/18 21:09 Dose: 20 mg Enoxaparin Sodium (Lovenox -) 40 mg SQ DAILY [facility] Last Admin: 12/02/18 09:58 Dose: 40 mg Hydrochlorothiazide (Hctz -) 25 mg PO DAILY [facility] Last Admin: 12/02/18 09:58 Dose: 25 mg Tamsulosin HCl (Flomax -) 0.4 mg PO DAILY@0830 [facility] Last Admin: 12/02/18 09:59 Dose: 0.4 mg - Objective Vital Signs: Vital Signs Temperature 98.4 F 12/03/18 00:36 Pulse Rate 82 12/03/18 04:25 Respiratory Rate 18 12/03/18 04:25 Blood Pressure 136/72 12/03/18 04:25 O2 Sat by Pulse Oximetry (%) 96 12/02/18 21:00 Middle man not in distress HEENT: Mm moist, no anemia, PERRLA, EOMI NECK: No JVD no bruit CHEST: CTA B/L CVS: S1S2 R A ABD: NOn Obese , non tender Bs + EXT: No edema, no calf tenderness, Pulses + DIRECTOR TALENT MANAGEMENT: AOX3 non focal Labs: CBC, BMP 11/29/18 05:30 11/29/18 05:30 INR, PTT INR 1.07 (0.83-1.09) 11/28/18 20:35 Problem List - Problems (1) Chest pain Assessment/Plan: in the setting of cocaine abuse, normal serail CE, ECHO pending evaluated by Cardiology consult. Consider stress once TB is R/O Code(s): R07.9 - CHEST PAIN, UNSPECIFIED (2) HTN (hypertension) Assessment/Plan: Well control cont amlodipine Code(s): I10 - ESSENTIAL (PRIMARY) HYPERTENSION (3) Polysubstance (excluding opioids) dependence Assessment/Plan: Active Cocaine and ETOH needs SW evaluation. Code(s): F19.20 - OTHER PSYCHOACTIVE SUBSTANCE DEPENDENCE, UNCOMPLICATED (4) BPH (benign prostatic hyperplasia) Assessment/Plan: Cont Flomax Code(s): N40.0 - BENIGN PROSTATIC HYPERPLASIA WITHOUT LOWER URINRY TRACT SYMP (5) Acid fast bacillus Assessment/Plan: abnormal CXR, Sputum on 11/29/18 few AFB PCR and culture is pending , HIV -ve will F/U ID recommendations.
[2018-12-03] MEDS: TAMSULOSIN HCL 0.4 MG CAP PO SCH (09:32)
[2018-12-03] MEDS: amLODIPine BESYLATE 5 MG TABLET (FP) PO SCH (09:32)
[2018-12-03] MEDS: ENOXAPARIN NA (PORCINE) 40 MG/0.4 ML DISP.SYRIN SQ SCH (09:32)
[2018-12-03] MEDS: HYDROCHLOROTHIAZIDE 25 MG TABLET (FP) PO SCH (09:32)
[2018-12-03] MEDS: ASPIRIN 81 MG CHEWABLE TABLETS PO SCH (09:32)
--- NOTE | 2018-12-03 13:45 | PN ---
Progress Note (short form) - Note Progress Note: s: no chest pain, palps, dizziness, dyspnea. stable cough Current Medications Acetaminophen (Tylenol -) 650 mg PO Q6H PRN PRN Reason: FEVER Last Admin: 12/01/18 01:41 Dose: 650 mg Amlodipine Besylate (Norvasc -) 5 mg PO DAILY [facility] Last Admin: 12/03/18 09:32 Dose: 5 mg Aspirin (Asa -) 81 mg PO DAILY [facility] Last Admin: 12/03/18 09:32 Dose: 81 mg Atorvastatin Calcium (Lipitor -) 20 mg PO HS [facility] Last Admin: 12/02/18 21:09 Dose: 20 mg Enoxaparin Sodium (Lovenox -) 40 mg SQ DAILY [facility] Last Admin: 12/03/18 09:32 Dose: 40 mg Hydrochlorothiazide (Hctz -) 25 mg PO DAILY [facility] Last Admin: 12/03/18 09:32 Dose: 25 mg Tamsulosin HCl (Flomax -) 0.4 mg PO DAILY@0830 [facility] Last Admin: 12/03/18 09:32 Dose: 0.4 mg Vital Signs Period Temp Pulse Resp BP Sys/Wu Pulse Ox Last 24 Hr 97.7 F-98.8 F 78-89 18-20 117-140/72-83 96-96 Constitutional: Yes: Well Nourished, No Distress, Calm Cardiovascular: Yes: Regular Rate and Rhythm, S1, S2. No: Gallop, Murmur, Rub Respiratory: Yes: Regular, CTA Bilaterally. No: Accessory Muscle Use, Rales, Wheezes Extremities: No: Cold Edema: No Neurological: Yes: Alert, Oriented Psychiatric: No: Agitated EKG: sinus, nl intervals, no ischemic changes echo: mild conc LVH, nl LV function, mod dilated LA, mild MR, mild TR CT chest: mild-mod copd changes, tiny nodule tele: NSR Assessment/Plan chest pain - trop neg x 3, EKG no ischemic changes - CT chest images reviewed, no coronary calcifications present - echo nl EF, mild LVH - likely in setting of cocaine use - no further episodes during admission - stress test when TB rule out completed weight loss, cough - hx +ppd, +AFB sputum - on isolation, for sputum cultures, TB PCR analysis--per ID HTN - bp controlled - cont current meds
[2018-12-03] MEDS: ATORVASTATIN CA 20 MG TABLET (FP) PO SCH (21:20)
[2018-12-04 06:23] LABS: BASO % 0.8 % (0-2.0); EOS % 2.7 % (0-4.5); HEMATOCRIT 45.2 % (35.4-49); HEMOGLOBIN 15.5 GM/dL (11.7-16.9); LYMPH % 38.3 % (8-40); MCH 33.1 pg (25.7-33.7); MCHC 34.3 g/dl (32.0-35.9); MEAN CELL VOLUME 96.5 fl (80-96); MONO % 11.9 % (3.8-10.2); NEUT % 46.3 % (42.8-82.8); PLATELET COUNT 223 K/MM3 (134-434); RBC 4.68 M/mm3 (4.00-5.60); RDW 13.1 % (11.9-15.9); WHITE BLOOD COUNT 4.9 K/mm3 (4.0-10.0)
[2018-12-04 06:41] LABS: ANION GAP 7 MMOL/L (8-16); BLOOD UREA NITROGEN 20 mg/dL (7-18); CALCIUM 9.1 mg/dL (8.5-10.1); CHLORIDE 108 mmol/L (98-107); CO2 25 mmol/L (21-32); GLUCOSE,RANDOM 97 mg/dL (74-106); POTASSIUM 4.2 mmol/L (3.5-5.1); SODIUM 140 mmol/L (136-145)
[2018-12-04] MEDS: HYDROCHLOROTHIAZIDE 25 MG TABLET (FP) PO SCH (09:46)
[2018-12-04] MEDS: amLODIPine BESYLATE 5 MG TABLET (FP) PO SCH (09:46)
[2018-12-04] MEDS: ENOXAPARIN NA (PORCINE) 40 MG/0.4 ML DISP.SYRIN SQ SCH (09:46)
[2018-12-04] MEDS: ASPIRIN 81 MG CHEWABLE TABLETS PO SCH (09:46)
[2018-12-04] MEDS: TAMSULOSIN HCL 0.4 MG CAP PO SCH (09:46)
--- NOTE | 2018-12-04 11:55 | PN ---
Progress Note (short form) - Note Progress Note: s: no chest pain, palps, dizziness, dyspnea Current Medications Acetaminophen (Tylenol -) 650 mg PO Q6H PRN PRN Reason: FEVER Last Admin: 12/01/18 01:41 Dose: 650 mg Amlodipine Besylate (Norvasc -) 5 mg PO DAILY [facility] Last Admin: 12/04/18 09:46 Dose: 5 mg Aspirin (Asa -) 81 mg PO DAILY [facility] Last Admin: 12/04/18 09:46 Dose: 81 mg Atorvastatin Calcium (Lipitor -) 20 mg PO HS [facility] Last Admin: 12/03/18 21:20 Dose: 20 mg Enoxaparin Sodium (Lovenox -) 40 mg SQ DAILY [facility] Last Admin: 12/04/18 09:46 Dose: 40 mg Hydrochlorothiazide (Hctz -) 25 mg PO DAILY [facility] Last Admin: 12/04/18 09:46 Dose: 25 mg Tamsulosin HCl (Flomax -) 0.4 mg PO DAILY@0830 [facility] Last Admin: 12/04/18 09:46 Dose: 0.4 mg Vital Signs Period Temp Pulse Resp BP Sys/Wu Pulse Ox Last 24 Hr 97.9 F-98.8 F 72-88 18-20 108-135/70-82 96-98 Constitutional: Yes: Well Nourished, No Distress, Calm Cardiovascular: Yes: Regular Rate and Rhythm, S1, S2. No: Gallop, Murmur, Rub Respiratory: Yes: Regular, CTA Bilaterally. No: Accessory Muscle Use, Rales, Wheezes Extremities: No: Cold Edema: No Neurological: Yes: Alert, Oriented Psychiatric: No: Agitated EKG: sinus, nl intervals, no ischemic changes echo: mild conc LVH, nl LV function, mod dilated LA, mild MR, mild TR CT chest: mild-mod copd changes, tiny nodule tele: NSR Assessment/Plan chest pain - trop neg x 3, EKG no ischemic changes - CT chest images reviewed, no coronary calcifications present - echo nl EF, mild LVH - likely in setting of cocaine use - no further episodes during admission - stress test when TB rule out completed weight loss, cough - hx +ppd, +AFB sputum - on isolation, for sputum cultures, TB PCR analysis--per ID HTN - bp controlled - cont current meds
--- NOTE | 2018-12-04 13:18 | PN ---
Physical Exam: SUBJECTIVE: Patient seen and examined at the bedside. Feels well today, eager to go home. OBJECTIVE: Vital Signs Period Temp Pulse Resp BP Sys/Wu Pulse Ox Last 24 Hr 97.9 F-98.8 F 72-88 18-20 108-135/70-82 96-98 GENERAL: The patient is awake, alert, and fully oriented, in no acute distress. HEAD: Normal with no signs of trauma. EYES: PERRL, extraocular movements intact, sclera anicteric, conjunctiva clear. No ptosis. ENT: Ears normal, nares patent, oropharynx clear without exudates, moist mucous membranes. NECK: Trachea midline, full range of motion, supple. LUNGS: Breath sounds equal, clear to auscultation bilaterally, no wheezes, no crackles, no accessory muscle use. HEART: Regular rate and rhythm on monitoring and evaluation advisor. ABDOMEN: Soft, nontender, nondistended, normoactive bowel sounds, no guarding EXTREMITIES: 2+ pulses, warm, well-perfused, no edema. NEUROLOGICAL: Normal speech, gait not observed. PSYCH: Normal mood, normal affect. SKIN: Warm, dry, normal turgor, no rashes or lesions noted Laboratory Results - last 24 hr 12/04/18 12/04/18 05:30 05:30 WBC 4.9 RBC 4.68 Hgb 15.5 Hct 45.2 MCV 96.5 H MCH 33.1 MCHC 34.3 RDW 13.1 Plt Count 223 MPV 10.0 Absolute Neuts (auto) 2.3 Neutrophils % 46.3 Lymphocytes % 38.3 Monocytes % 11.9 H Eosinophils % 2.7 Basophils % 0.8 Nucleated RBC % 0 Sodium 140 Potassium 4.2 Chloride 108 H Carbon Dioxide 25 Anion Gap 7 L BUN 20 H Creatinine 1.0 Creat Clearance w eGFR 75.97 Random Glucose 97 Calcium 9.1 Active Medications Generic Name Dose Route Start Last Admin Trade Name Freq PRN Reason Stop Dose Admin Acetaminophen 650 mg 11/28/18 17:23 12/01/18 01:41 Tylenol - PO 650 mg Q6H PRN Administration FEVER Amlodipine Besylate 5 mg 11/29/18 13:15 12/04/18 09:46 Norvasc - PO 5 mg DAILY [facility] Administration Aspirin 81 mg 11/29/18 10:00 04/16/19 09:46 Asa - PO 81 mg DAILY [facility] Administration Atorvastatin Calcium 20 mg 12/02/18 22:00 12/03/18 21:20 Lipitor - PO 20 mg HS [facility] Administration Enoxaparin Sodium 40 mg 11/30/18 10:00 12/04/18 09:46 Lovenox - SQ 40 mg DAILY [facility] Administration Hydrochlorothiazide 25 mg 11/29/18 10:00 12/04/18 09:46 Hctz - PO 25 mg DAILY [facility] Administration Tamsulosin HCl 0.4 mg 11/29/18 08:30 12/04/18 09:46 Flomax - PO 0.4 mg DAILY@0830 [facility] Administration ASSESSMENT/PLAN: Patient is a 62 year old male with a past medical history of BPH, HTN, +PPD and ETOH and cocaine abuse presents to ED for evaluation of acute left sided chest pain. Patient has a long history of tobacco dependence. On admission, he endorsed 2 weeks of night sweats, productive cough with thick white sputum, and 15-20lb weight loss over the last 6-8months. He reported +PPD, denies recent travel, no recent sick contact or incarcerations. Since admission, chest pain has resolved. He is being ruled out for TB. Card: Chest pain, resolved In the setting of cocaine abuse troponins negative x 3 Patient for a stress test once TB is ruled out cardiology following Hypertension. controlled on Norvasc 5mg Pulmonary: Rule out TB abnormal chest xray, sputum 11/29/18 few AFB PCR Negative for HIV ID following Psyche: Polysubstance abuse Active cocaine use and ETOH abuse : BPH. continue flomax fen tolerartiing po monitor electrolytes low salt diet full code Visit type - Emergency Visit Emergency Visit: Yes ED Registration Date: 11/28/18 Care time: The patient presented to the Emergency Department on the above date and was hospitalized for further evaluation of their emergent condition. - New Patient This patient is new to me today: Yes Date on this admission: 12/04/18 - Critical Care Critical Care patient: No - Discharge Referral Referred to [facility] Med P.C.: No
[2018-12-04] MEDS: ATORVASTATIN CA 20 MG TABLET (FP) PO SCH (21:10)
[2018-12-05 05:43] VITALS: TEMP 97.7
[2018-12-05] MEDS: TAMSULOSIN HCL 0.4 MG CAP PO SCH (08:10)
[2018-12-05 08:33] VITALS: BP 121/77; PULSE 74
[2018-12-05] MEDS: ENOXAPARIN NA (PORCINE) 40 MG/0.4 ML DISP.SYRIN SQ SCH (09:30)
[2018-12-05] MEDS: amLODIPine BESYLATE 5 MG TABLET (FP) PO SCH (09:30)
[2018-12-05] MEDS: ASPIRIN 81 MG CHEWABLE TABLETS PO SCH (09:30)
[2018-12-05] MEDS: HYDROCHLOROTHIAZIDE 25 MG TABLET (FP) PO SCH (09:31)
[2018-12-05 11:08] LABS: BASO % 0.9 % (0-2.0); EOS % 2.1 % (0-4.5); HEMOGLOBIN 15.3 GM/dL (11.7-16.9); LYMPH % 41.5 % (8-40); MCH 32.2 pg (25.7-33.7); MCHC 33.2 g/dl (32.0-35.9); MEAN PLT VOLUME 9.5 fl (7.5-11.1); MONO % 10.2 % (3.8-10.2); NEUT % 45.3 % (42.8-82.8); PLATELET COUNT 219 K/MM3 (134-434); RBC 4.74 M/mm3 (4.00-5.60); RDW 13.1 % (11.9-15.9); WHITE BLOOD COUNT 5.1 K/mm3 (4.0-10.0)
--- NOTE | 2018-12-05 11:26 | PN ---
Progress Note (short form) - Note Progress Note: s: no chest pain, palps, dizziness, dyspnea Current Medications Acetaminophen (Tylenol -) 650 mg PO Q6H PRN PRN Reason: FEVER Last Admin: 12/01/18 01:41 Dose: 650 mg Amlodipine Besylate (Norvasc -) 5 mg PO DAILY [facility] Last Admin: 12/05/18 09:30 Dose: 5 mg Aspirin (Asa -) 81 mg PO DAILY [facility] Last Admin: 12/05/18 09:30 Dose: 81 mg Atorvastatin Calcium (Lipitor -) 20 mg PO HS [facility] Last Admin: 12/04/18 21:10 Dose: 20 mg Enoxaparin Sodium (Lovenox -) 40 mg SQ DAILY [facility] Last Admin: 12/05/18 09:30 Dose: 40 mg Hydrochlorothiazide (Hctz -) 25 mg PO DAILY [facility] Last Admin: 12/05/18 09:31 Dose: 25 mg Tamsulosin HCl (Flomax -) 0.4 mg PO DAILY@0830 [facility] Last Admin: 12/05/18 08:10 Dose: 0.4 mg Vital Signs Period Temp Pulse Resp BP Sys/Wu Pulse Ox Last 24 Hr 97.7 F-98.2 F 64-79 20-20 103-135/66-93 96-96 Constitutional: Yes: Well Nourished, No Distress, Calm Cardiovascular: Yes: Regular Rate and Rhythm, S1, S2. No: Gallop, Murmur, Rub Respiratory: Yes: Regular, CTA Bilaterally. No: Accessory Muscle Use, Rales, Wheezes Extremities: No: Cold Edema: No Neurological: Yes: Alert, Oriented Psychiatric: No: Agitated EKG: sinus, nl intervals, no ischemic changes echo: mild conc LVH, nl LV function, mod dilated LA, mild MR, mild TR CT chest: mild-mod copd changes, tiny nodule Assessment/Plan chest pain - trop neg x 3, EKG no ischemic changes - CT chest images reviewed, no coronary calcifications present - echo nl EF, mild LVH - likely in setting of cocaine use - no further episodes during admission - stress test when TB rule out completed weight loss, cough - hx +ppd, +AFB sputum - on isolation, for sputum cultures, TB PCR analysis--per ID HTN - bp controlled - cont current meds
[2018-12-05 11:40] LABS: ALBUMIN 3.6 g/dl (3.4-5.0); ALK PHOS 136 U/L (45-117); ANION GAP 6 MMOL/L (8-16); BILIRUBIN,TOTAL 0.6 mg/dL (0.2-1); BLOOD UREA NITROGEN 19 mg/dL (7-18); CALCIUM 9.2 mg/dL (8.5-10.1); CHLORIDE 106 mmol/L (98-107); CO2 30 mmol/L (21-32); CREATININE 1.1 mg/dL (0.55-1.3); GLUCOSE,RANDOM 97 mg/dL (74-106); MAGNESIUM 2.1 mg/dL (1.8-2.4); POTASSIUM 3.8 mmol/L (3.5-5.1); SGOT/AST 30 U/L (15-37); SGPT/ALT 52 U/L (13-61); SODIUM 141 mmol/L (136-145); TOT PROT 6.9 g/dl (6.4-8.2)
--- NOTE | 2018-12-05 14:55 | DS ---
Physical Exam: SUBJECTIVE: Patient seen and examined. denies shortness of breath or chest pain. OBJECTIVE: cleared by ID for discharge home, ruled out for TB Vital Signs Period Temp Pulse Resp BP Sys/Wu Pulse Ox Last 24 Hr 97.7 F-98.2 F 64-77 20-20 103-135/66-93 96-96 PHYSICAL EXAM GENERAL: The patient is awake, alert, and fully oriented, in no acute distress. HEAD: Normal with no signs of trauma. EYES: PERRL, extraocular movements intact, sclera anicteric, conjunctiva clear. No ptosis. ENT: Ears normal, nares patent, oropharynx clear without exudates, moist mucous membranes. NECK: Trachea midline, full range of motion, supple. LUNGS: Breath sounds equal, clear to auscultation bilaterally, no wheezes, no crackles, no accessory muscle use. HEART: Regular rate and rhythm on hospital monitor. ABDOMEN: Soft, nontender, nondistended, normoactive bowel sounds, no guarding EXTREMITIES: 2+ pulses, warm, well-perfused, no edema. NEUROLOGICAL: Normal speech, gait not observed. PSYCH: Normal mood, normal affect. SKIN: Warm, dry, normal turgor, no rashes or lesions noted LABS Laboratory Results - last 24 hr 12/02/18 12/05/18 12/05/18 10:00 11:00 11:00 WBC 5.1 RBC 4.74 Hgb 15.3 Hct 46.0 MCV 97.0 H MCH 32.2 MCHC 33.2 RDW 13.1 Plt Count 219 MPV 9.5 Absolute Neuts (auto) 2.3 Neutrophils % 45.3 Lymphocytes % 41.5 H Monocytes % 10.2 Eosinophils % 2.1 Basophils % 0.9 Nucleated RBC % 0 Sodium 141 Potassium 3.8 Chloride 106 Carbon Dioxide 30 Anion Gap 6 L BUN 19 H Creatinine 1.1 Creat Clearance w eGFR 68.05 Random Glucose 97 Calcium 9.2 Magnesium 2.1 Total Bilirubin 0.6 AST 30 ALT 52 Alkaline Phosphatase 136 H Total Protein 6.9 Albumin 3.6 Stool O & P Wet [place] & P Permanent Slide Final report HOSPITAL COURSE: Date of Admission:11/28/18 Date of Discharge: 12/05/18 Patient is a 62 year old male with a past medical history of BPH, HTN, +PPD and ETOH and cocaine abuse presents to ED for evaluation of acute left sided chest pain. Patient has a long history of tobacco dependence. On admission, he endorsed 2 weeks of night sweats, productive cough with thick white sputum, and 15-20lb weight loss over the last 6-8months. He reported +PPD, denies recent travel, no recent sick contact or incarcerations. Since admission, chest pain has resolved. He is being ruled out for TB. Card: Chest pain, resolved In the setting of cocaine abuse troponins negative x 3 Patient for a stress test as an outpatient with Dr. Petty's group. Hypertension. controlled on Norvasc 5mg Pulmonary: Rule out TB presents with 2 weeks of night sweats, productive cough and weight loss. ruled out for TB per ID. Negative for HIV Psyche: Polysubstance abuse Active cocaine use and ETOH abuse Was at rehab at [facility], but wants to follow up outpatient. : BPH. continue flomax discharge home with outpatient follow up. Minutes to complete discharge: 60 Discharge Summary Reason For Visit: CHEST PAIN Current Active Problems Abnormal weight loss (Acute) Acid fast bacillus (Acute) BPH (benign prostatic hyperplasia) (Acute) Chest pain (Acute) HTN (hypertension) (Acute) Left-sided chest pain (Acute) Polysubstance (excluding opioids) dependence (Acute) Productive cough (Acute) Prophylactic measure (Acute) Tobacco dependence (Acute) Condition: Improved - Instructions Diet, Activity, Other Instructions: Mr. Guerra: You were admitted for chest pain and TB has been ruled out. Here are our recommendations: Chest pain. You were evaluated by cardiology and have been cleared to go home and follow up outpatient. You will need a stress test. This will be set up for you. Please call for an appointment. New medications: Norvasc 5mg - take once per day for hypertension Asprin 81mg - take daily for stroke prevention Lipitor 20mg daily - for high cholesterol All your medications have been called into your pharmacy. Please call me with questions. Thank you for allowing us to care for you. [facility] [phone] Referrals: Niecy Hoff MD [Staff Physician] - 1 Week (follow up for stress test) Disposition: HOME - Home Medications Comprehensive Discharge Medication List: Ambulatory Orders Hydrochlorothiazide [Hctz -] 25 mg PO DAILY 11/28/18 Tamsulosin HCl [Flomax] 0.4 mg PO DAILY 11/28/18 Amlodipine Besylate [Norvasc -] 5 mg PO DAILY #30 tablet 12/05/18 Aspirin [ASA -] 81 mg PO DAILY #30 tab.chew 12/05/18 Atorvastatin Ca [Lipitor] 20 mg PO HS #30 tablet 12/05/18 Nicotine Polacrilex [Nicotine Gum] 4 mg BC BID #60 gum 12/05/18 Tamsulosin HCl [Flomax -] 0.4 mg PO DAILY@0830 cap.er.24h 12/05/18 This patient is new to me today: No Emergency Visit: Yes ED Registration Date: 11/28/18 Care time: The patient presented to the Emergency Department on the above date and was hospitalized for further evaluation of their emergent condition. Critical Care patient: No - Discharge Referral Referred to [facility] Med P.C.: No
== END 2018-12-05 15:10 | disposition home or self-care (01) | DRG 816 ==
LOC: JER 13:12 → JERBED 14:49 → OBSVTOIN 19:23 → J4W 11-29 22:09
PROVIDERS: ADMIT Internal Medicine; ATTEND Nurse Practitioner Family
DX: T40.5X1A Poisoning by cocaine, accidental (unintentional), initial encounter (principal); N40.0 Benign prostatic hyperplasia without lower urinary tract symptoms; F17.210 Nicotine dependence, cigarettes, uncomplicated; R91.1 Solitary pulmonary nodule; F14.10 Cocaine abuse, uncomplicated; R63.4 Abnormal weight loss; R07.9 Chest pain, unspecified; I10 Essential (primary) hypertension; J43.2 Centrilobular emphysema; R19.7 Diarrhea, unspecified
CPT/HCPCS: 36415; 71045-TC-FY; 71250-TC; 80048; 80053; 80061; 82550; 82553; 83036; 83721; 83735; 83880; 84100; 84436; 84443; 84484; 85025; 85610; 85730; 86480; 87116; 87177; 87206; 87209; 87324; 87389; 87449; 87556; 87899; 90670; 90688; 93005; 93010; 93306-TC; 99285-25; G0008; G0009; G0378; J7030

== ENCOUNTER 2022-10-07 10:36 | Inpatient (IN) | payer OTHER ==
[2022-10-07 11:33] VITALS: BMI 25.8
[2022-10-07] MEDS ORDERED: NALOXONE HCL 0.4 MG/ML VIAL IM PRN (13:48)
[2022-10-07] MEDS ORDERED: IBUPROFEN 600 MG TABLET (FP) PO PRN (13:48)
[2022-10-07] MEDS ORDERED: MAGNESIUM HYDROX 2400MG/30ML ORAL SUSPENSION 30 ML CUP PO PRN (13:48)
[2022-10-07] MEDS ORDERED: MAG HYDROX/AL HYDROX/SIMETH 30 ML UNIT-DOSE CUP PO PRN (13:48)
[2022-10-07] MEDS ORDERED: BENZOCAINE/MENTHOL (CHLORASEPTIC ) LOZENGE MM PRN (13:48)
[2022-10-07] MEDS ORDERED: LOPERAMIDE HCL 2 MG CAPSULE PO PRN (13:48)
[2022-10-07] MEDS ORDERED: ONDANSETRON *ODT* 4 MG TABLET SL PRN (13:48)
[2022-10-07] MEDS ORDERED: BISMUTH SUBSALICYLATE 524 MG/30 ML PO PRN (13:48)
[2022-10-07] MEDS ORDERED: POLYETHYLENE GLYCOL (HEALTHYLAX) 3350 17 GM PACKET PO PRN (13:48)
[2022-10-07] MEDS ORDERED: IBUPROFEN 400 MG TABLET (FP) PO PRN (13:48)
[2022-10-07] MEDS ORDERED: DICYCLOMINE HCL 10 MG CAPSULE PO PRN (13:48)
[2022-10-07] MEDS ORDERED: ACETAMINOPHEN 325 MG TABLET (FP) PO PRN ×2 (13:48)
[2022-10-07] MEDS ORDERED: NALOXONE HCL (KLOXXADO) 8 MG SPRAY NS PRN (13:48)
[2022-10-07] MEDS ORDERED: MINERAL OIL/PETROLAT/WATER TOPICAL CREAM 454 GM JAR TP PRN (13:51)
[2022-10-07] MEDS ORDERED: cloNIDine HCL 0.1 MG TABLET PO ONE (14:52)
[2022-10-07] MEDS: ATORVASTATIN CA 20 MG TABLET (FP) PO SCH (22:32)
[2022-10-07] MEDS: hydrOXYzine PAMOATE 25 MG CAPSULE (FP) PO PRN (22:32)
[2022-10-07] MEDS: THIAMINE HCL 100 MG TABLET (FP) PO SCH (22:32)
[2022-10-07] MEDS: MELATONIN 5 MG TABLETS PO SCH (22:32)
[2022-10-08] MEDS ORDERED: LORazepam 0.5 MG TABLET PO PRN
[2022-10-08] MEDS: TAMSULOSIN HCL 0.4 MG CAP PO SCH (08:56)
[2022-10-08] MEDS: hydrOXYzine PAMOATE 25 MG CAPSULE (FP) PO PRN (10:24)
[2022-10-08] MEDS: PRENATAL VITAMINS W/ FOLIC ACID TABLET (FP) PO SCH (10:24)
[2022-10-08] MEDS: amLODIPine BESYLATE 10 MG TABLET (FP) PO SCH (10:24)
[2022-10-08] MEDS: LORazepam 1 MG TABLET PO SCH ×3 (10:26→22:38)
[2022-10-08] MEDS: TRIAMCINOLONE ACET 0.1% CREAM 15 GM TUBE TP SCH (10:26)
[2022-10-08 10:34] LABS: ALBUMIN 3.3 g/dl (3.4-5.0); HEMATOCRIT 40.6 % (35.4-49); MCH 33.6 pg (25.7-33.7); MCHC 34.5 g/dl (32.0-35.9); MEAN CELL VOLUME 97.5 fl (80-96); MEAN PLT VOLUME 10.2 fl (7.5-11.1); PLATELET COUNT 187 10^3/uL (134-434); RBC 4.17 M/mm3 (4.00-5.60); RDW 13.2 % (11.9-15.9); WHITE BLOOD COUNT 5.6 K/mm3 (4.0-10.0)
[2022-10-08 10:35] LABS: BLOOD UREA NITROGEN 16.4 mg/dL (7-18)
[2022-10-08 10:37] LABS: CREATININE 0.8 mg/dL (0.55-1.3)
[2022-10-08 10:39] LABS: BILIRUBIN,TOTAL 0.5 mg/dL (0.2-1); TOT PROT 6.3 g/dl (6.4-8.2)
[2022-10-08 11:31] LABS: HIV INTERPRETATION NEGATIVE (NEGATIVE)
[2022-10-08] MEDS: LACTULOSE 20 GM/30 ML UDC (FOR ORAL USE ONLY) PO SCH ×2 (15:40→22:39)
[2022-10-08] MEDS ORDERED: cloNIDine HCL 0.1 MG TABLET PO ONE (21:35)
[2022-10-08] MEDS: THIAMINE HCL 100 MG TABLET (FP) PO SCH (22:38)
[2022-10-08] MEDS: ATORVASTATIN CA 20 MG TABLET (FP) PO SCH (22:38)
[2022-10-08] MEDS: MELATONIN 5 MG TABLETS PO SCH (22:38)
[2022-10-09] MEDS: LORazepam 0.5 MG TABLET PO SCH ×4 (05:12→22:06)
[2022-10-09] MEDS: LACTULOSE 20 GM/30 ML UDC (FOR ORAL USE ONLY) PO SCH ×3 (05:13→22:05)
[2022-10-09] MEDS: NICOTINE 10 MG CARTRIDGE (INHALER) IH PRN (05:15)
[2022-10-09] MEDS: TAMSULOSIN HCL 0.4 MG CAP PO SCH (08:47)
[2022-10-09] MEDS: amLODIPine BESYLATE 10 MG TABLET (FP) PO SCH (10:13)
[2022-10-09] MEDS: PRENATAL VITAMINS W/ FOLIC ACID TABLET (FP) PO SCH (10:13)
[2022-10-09] MEDS: hydrOXYzine PAMOATE 25 MG CAPSULE (FP) PO PRN (10:13)
[2022-10-09] MEDS: TRIAMCINOLONE ACET 0.1% CREAM 15 GM TUBE TP SCH (10:14)
[2022-10-09] MEDS ORDERED: LISINOPRIL 10 MG TABLET PO SCH (15:00)
[2022-10-09] MEDS: HYDROCHLOROTHIAZIDE 12.5 MG CAPSULE (FP) PO SCH (15:43)
[2022-10-09] MEDS: THIAMINE HCL 100 MG TABLET (FP) PO SCH (22:05)
[2022-10-09] MEDS: MELATONIN 5 MG TABLETS PO SCH (22:06)
[2022-10-09] MEDS: ATORVASTATIN CA 20 MG TABLET (FP) PO SCH (22:06)
[2022-10-10 01:12] LABS: PH,URINE 5.5 (5.0-8.0); URINE APPEARANCE CLEAR; URINE BILIRUBIN NEGATIVE (NEGATIVE); URINE COLOR YELLOW; URINE GLUCOSE (UA) NEGATIVE (NEGATIVE); URINE KETONE NEGATIVE (NEGATIVE); URINE LEUK ESTERASE NEGATIVE (NEGATIVE); URINE NITRITE NEGATIVE (NEGATIVE); URINE PROTEIN NEGATIVE (NEGATIVE); URINE UROBILINOGEN 0.2 mg/dL (0.2-1.0)
[2022-10-10] MEDS ORDERED: LORazepam 0.5 MG TABLET PO ONE (05:00)
[2022-10-10] MEDS: LACTULOSE 20 GM/30 ML UDC (FOR ORAL USE ONLY) PO SCH (05:26)
[2022-10-10] MEDS: HYDROCHLOROTHIAZIDE 12.5 MG CAPSULE (FP) PO SCH (09:26)
[2022-10-10] MEDS: amLODIPine BESYLATE 10 MG TABLET (FP) PO SCH (09:26)
[2022-10-10] MEDS: PRENATAL VITAMINS W/ FOLIC ACID TABLET (FP) PO SCH (09:27)
[2022-10-10] MEDS: TRIAMCINOLONE ACET 0.1% CREAM 15 GM TUBE TP SCH (09:27)
[2022-10-10] MEDS: TAMSULOSIN HCL 0.4 MG CAP PO SCH (09:27)
[2022-10-10 09:37] VITALS: BP 136/92; PULSE 78; RESP 18; TEMP 97.6
[2022-10-10] MEDS: NICOTINE 10 MG CARTRIDGE (INHALER) IH PRN (11:35)
== END 2022-10-10 11:39 | disposition other institution (70) | DRG 897 ==
LOC: YASAS 10:36 → UNDOADMIN 14:12 → Y6N 14:12 → UNDODISIN 10-10 11:39
PROVIDERS: ADMIT Allergy & Immunology; ATTEND Surgery
PROC: HZ2ZZZZ Detoxification Services for Substance Abuse Treatment (ICD-10-PCS; principal; 2022-10-07)
DX: F10.230 Alcohol dependence with withdrawal, uncomplicated (principal); F14.20 Cocaine dependence, uncomplicated; F12.20 Cannabis dependence, uncomplicated; F17.210 Nicotine dependence, cigarettes, uncomplicated; F41.9 Anxiety disorder, unspecified; I10 Essential (primary) hypertension; L25.9 Unspecified contact dermatitis, unspecified cause; N40.0 Benign prostatic hyperplasia without lower urinary tract symptoms; R76.11 Nonspecific reaction to tuberculin skin test without active tuberculosis; R79.89 Other specified abnormal findings of blood chemistry
CPT/HCPCS: 36415; 71046-TC-FY; 80053; 81003; 82140; 85027; 86780; 87389; C9803-CS; U0003; U0005

== ENCOUNTER 2022-10-10 11:53 | Inpatient (IN) | payer OTHER ==
[2022-10-10] MEDS ORDERED: hydrOXYzine PAMOATE 25 MG CAPSULE (FP) PO PRN (12:44)
[2022-10-10] MEDS ORDERED: MAG HYDROX/AL HYDROX/SIMETH 30 ML UNIT-DOSE CUP PO PRN (12:44)
[2022-10-10] MEDS ORDERED: guaiFENesin 200 MG/10 ML 10 ML UNIT-DOSE CUPS PO PRN (12:44)
[2022-10-10] MEDS ORDERED: P-EPHED 60MG/TRIPROLIDI 2.5MG TABLET PO PRN (12:44)
[2022-10-10] MEDS ORDERED: POLYETHYLENE GLYCOL (HEALTHYLAX) 3350 17 GM PACKET PO PRN (12:44)
[2022-10-10] MEDS ORDERED: MAGNESIUM HYDROX 2400MG/30ML ORAL SUSPENSION 30 ML CUP PO PRN (12:44)
[2022-10-10] MEDS ORDERED: ACETAMINOPHEN 325 MG TABLET (FP) PO PRN (12:44)
[2022-10-10] MEDS ORDERED: LOPERAMIDE HCL 2 MG CAPSULE PO PRN (12:44)
[2022-10-10] MEDS ORDERED: BENZOCAINE/MENTHOL (CHLORASEPTIC ) LOZENGE MM PRN (12:44)
[2022-10-10] MEDS ORDERED: HYDROCHLOROTHIAZIDE 12.5 MG CAPSULE (FP) PO SCH (13:00)
[2022-10-10] MEDS: HYDROCHLOROTHIAZIDE 12.5 MG CAPSULE (FP) PO SCH (14:11)
[2022-10-10] MEDS: NICOTINE 7 MG/24 HOURS TOPICAL PATCH TD SCH (14:11)
[2022-10-10] MEDS: amLODIPine BESYLATE 10 MG TABLET (FP) PO SCH (14:11)
[2022-10-10] MEDS: PRENATAL VITAMINS W/ FOLIC ACID TABLET (FP) PO SCH (14:12)
[2022-10-10] MEDS: TRIAMCINOLONE ACET 0.1% CREAM 15 GM TUBE TP SCH (14:13)
[2022-10-10] MEDS: NICOTINE 10 MG CARTRIDGE (INHALER) IH PRN (14:13)
[2022-10-10] MEDS: LACTULOSE 20 GM/30 ML UDC (FOR ORAL USE ONLY) PO SCH ×2 (14:13→21:33)
[2022-10-10] MEDS: THIAMINE HCL 100 MG TABLET (FP) PO SCH (21:32)
[2022-10-10] MEDS: ATORVASTATIN CA 20 MG TABLET (FP) PO SCH (21:33)
[2022-10-10] MEDS: IBUPROFEN 400 MG TABLET (FP) PO PRN (21:33)
[2022-10-10] MEDS ORDERED: MELATONIN 5 MG TABLETS PO SCH (22:00)
[2022-10-11] MEDS: LACTULOSE 20 GM/30 ML UDC (FOR ORAL USE ONLY) PO SCH ×3 (05:46→21:31)
[2022-10-11] MEDS: IBUPROFEN 400 MG TABLET (FP) PO PRN (08:19)
[2022-10-11] MEDS: TAMSULOSIN HCL 0.4 MG CAP PO SCH (09:30)
[2022-10-11] MEDS: amLODIPine BESYLATE 10 MG TABLET (FP) PO SCH (10:24)
[2022-10-11] MEDS: NICOTINE 7 MG/24 HOURS TOPICAL PATCH TD SCH (10:24)
[2022-10-11] MEDS: PRENATAL VITAMINS W/ FOLIC ACID TABLET (FP) PO SCH (10:24)
[2022-10-11] MEDS: TRIAMCINOLONE ACET 0.1% CREAM 15 GM TUBE TP SCH (10:24)
[2022-10-11] MEDS: HYDROCHLOROTHIAZIDE 12.5 MG CAPSULE (FP) PO SCH (10:24)
[2022-10-11] MEDS: THIAMINE HCL 100 MG TABLET (FP) PO SCH (21:31)
[2022-10-11] MEDS: ATORVASTATIN CA 20 MG TABLET (FP) PO SCH (21:31)
[2022-10-11] MEDS ORDERED: SUVOREXANT 10 MG TABLET PO PRN (22:00)
[2022-10-12] MEDS: LACTULOSE 20 GM/30 ML UDC (FOR ORAL USE ONLY) PO SCH ×3 (05:57→21:15)
[2022-10-12] MEDS ORDERED: HYDROCORTISONE 0.5% TOPICAL CREAM 30 GM TUBE TP PRN (09:13)
[2022-10-12] MEDS: amLODIPine BESYLATE 10 MG TABLET (FP) PO SCH (09:28)
[2022-10-12] MEDS: TRIAMCINOLONE ACET 0.1% CREAM 15 GM TUBE TP SCH (09:28)
[2022-10-12] MEDS: TAMSULOSIN HCL 0.4 MG CAP PO SCH (09:28)
[2022-10-12] MEDS: HYDROCHLOROTHIAZIDE 12.5 MG CAPSULE (FP) PO SCH (09:28)
[2022-10-12] MEDS: NICOTINE 7 MG/24 HOURS TOPICAL PATCH TD SCH (09:29)
[2022-10-12] MEDS: PRENATAL VITAMINS W/ FOLIC ACID TABLET (FP) PO SCH (09:29)
[2022-10-12] MEDS: NICOTINE 10 MG CARTRIDGE (INHALER) IH PRN (09:30)
[2022-10-12] MEDS: VITAMINS A AND D TOPICAL OINTMENT 60 GM TUBE TP SCH ×3 (13:54→23:19)
[2022-10-12] MEDS: THIAMINE HCL 100 MG TABLET (FP) PO SCH (21:15)
[2022-10-12] MEDS: ATORVASTATIN CA 20 MG TABLET (FP) PO SCH (21:15)
[2022-10-13] MEDS: VITAMINS A AND D TOPICAL OINTMENT 60 GM TUBE TP SCH ×3 (05:41→18:27)
[2022-10-13] MEDS: LACTULOSE 20 GM/30 ML UDC (FOR ORAL USE ONLY) PO SCH ×3 (05:41→21:07)
[2022-10-13] MEDS: IBUPROFEN 400 MG TABLET (FP) PO PRN ×2 (06:14→21:23)
[2022-10-13] MEDS: PRENATAL VITAMINS W/ FOLIC ACID TABLET (FP) PO SCH (09:07)
[2022-10-13] MEDS: HYDROCHLOROTHIAZIDE 12.5 MG CAPSULE (FP) PO SCH (09:07)
[2022-10-13] MEDS: NICOTINE 7 MG/24 HOURS TOPICAL PATCH TD SCH (09:07)
[2022-10-13] MEDS: TRIAMCINOLONE ACET 0.1% CREAM 15 GM TUBE TP SCH (09:07)
[2022-10-13] MEDS: TAMSULOSIN HCL 0.4 MG CAP PO SCH (09:07)
[2022-10-13] MEDS: amLODIPine BESYLATE 10 MG TABLET (FP) PO SCH (09:07)
[2022-10-13] MEDS: ATORVASTATIN CA 20 MG TABLET (FP) PO SCH (21:06)
[2022-10-13] MEDS: THIAMINE HCL 100 MG TABLET (FP) PO SCH (21:06)
[2022-10-13] MEDS ORDERED: SUVOREXANT 10 MG TABLET PO PRN (22:00)
[2022-10-14] MEDS: VITAMINS A AND D TOPICAL OINTMENT 60 GM TUBE TP SCH ×2 (00:30→06:01)
[2022-10-14] MEDS: LACTULOSE 20 GM/30 ML UDC (FOR ORAL USE ONLY) PO SCH (05:53)
[2022-10-14] MEDS: NICOTINE 10 MG CARTRIDGE (INHALER) IH PRN (06:28)
[2022-10-14 06:29] VITALS: RESP 17
[2022-10-14 09:09] VITALS: BP 132/77; PULSE 68; TEMP 96.9
[2022-10-14] MEDS: TAMSULOSIN HCL 0.4 MG CAP PO SCH (09:19)
[2022-10-14] MEDS: HYDROCHLOROTHIAZIDE 12.5 MG CAPSULE (FP) PO SCH (09:19)
[2022-10-14] MEDS: amLODIPine BESYLATE 10 MG TABLET (FP) PO SCH (09:19)
[2022-10-14] MEDS: PRENATAL VITAMINS W/ FOLIC ACID TABLET (FP) PO SCH (09:19)
[2022-10-14] MEDS: TRIAMCINOLONE ACET 0.1% CREAM 15 GM TUBE TP SCH (09:20)
[2022-10-14] MEDS: NICOTINE 7 MG/24 HOURS TOPICAL PATCH TD SCH (09:21)
== END 2022-10-14 09:37 | disposition home or self-care (01) | DRG 895 ==
LOC: YASAS 11:53 → Y3W 11:54
PROVIDERS: ADMIT Allergy & Immunology; ATTEND Allergy & Immunology
PROC: HZ42ZZZ Group Counseling for Substance Abuse Treatment, Cognitive-Behavioral (ICD-10-PCS; principal; 2022-10-10)
DX: F10.20 Alcohol dependence, uncomplicated (principal); F14.20 Cocaine dependence, uncomplicated; F19.282 Other psychoactive substance dependence with psychoactive substance-induced sleep disorder; E72.20 Disorder of urea cycle metabolism, unspecified; F12.20 Cannabis dependence, uncomplicated; F17.210 Nicotine dependence, cigarettes, uncomplicated; F51.05 Insomnia due to other mental disorder; I10 Essential (primary) hypertension; E78.5 Hyperlipidemia, unspecified; L25.9 Unspecified contact dermatitis, unspecified cause; N40.0 Benign prostatic hyperplasia without lower urinary tract symptoms; R63.4 Abnormal weight loss; Z68.24 Body mass index [BMI] 24.0-24.9, adult; Z86.19 Personal history of other infectious and parasitic diseases
CPT/HCPCS: 36415; 82140; 86803